=== PATIENT | male | born 1975 | race Two or more races ===

== ENCOUNTER 2020-06-24 01:52 | Inpatient (IN) | payer MEDICARE, OTHER ==
[~2020-06-24] VITALS: Ht 167.6 cm; Wt 86.2 kg
[2020-06-24] VITALS (10 sets, daily range): BP systolic 92–117; BP diastolic 37–61
[2020-06-24] MEDS ORDERED: PROPOFOL 100 ML IV ONE (02:04)
[2020-06-24] MEDS: PROPOFOL 100 ML IV SCH ×6 (02:10→21:51)
[2020-06-24] MEDS ORDERED: NOREPINEPHRINE 8 MG/250ML KIT 250 ML IV ONE (02:15)
[2020-06-24] MEDS: NOREPINEPHRINE 8 MG/250ML KIT 250 ML IV SCH ×2 (02:17→20:45)
[2020-06-24] MEDS: MIDAZOLAM DRIP 50 mg/50mL 50 ML IV SCH ×3 (02:30→18:20)
[2020-06-24 02:33] LABS: Urine Bacteria FEW /hpf (None Seen); Urine Blood 1+ /uL (Negative); Urine Hyaline Cast FEW /lpf (0 - 2); Urine Specific Gravity 1.006 (1.001-1.035); Urine Sperm PRESENT /hpf (None Seen); Urine WBC 6 /hpf (0 - 3)
[2020-06-24 02:35] LABS: Basophils # (auto) 0.1 10 ^3/uL (0-0.2); Basophils % (auto) 0.6 % (0.0-2.0); Eosinophils # (auto) 0.3 10 ^3/uL (0-0.8); Eosinophils % (auto) 2.3 % (0.0-7.0); Hematocrit 26.1 % (41.0-53.0); Hemoglobin 8.4 g/dL (13.5-17.5); Lymphocytes # (auto) 1.8 10 ^3/uL (0.4-5.4); Lymphocytes % (auto) 13.2 % (10.0-50.0); Mean Corpuscular Volume 97.4 fL (80.0-100.0); Monocytes # (auto) 0.8 10 ^3/uL (0-1.3); Monocytes % (auto) 5.9 % (0.0-12.0); Neutrophils # (auto) 10.8 10 ^3/uL (1.6-8.6); Nucleated Red Blood Cells % 0.3 %; Red Blood Cells 2.68 10^6/uL (4.5-5.90); White Blood Cell 13.8 10^3/uL (4.4-10.8)
[2020-06-24] MEDS ORDERED: LIDOCAINE 2% (LOCAL ANESTH.) PF 5ml SDV ONE (02:35)
[2020-06-24 02:36] LABS: Mean Corpuscular Hemoglobin 31.2 pg (28.0-32.0); Mean Corpuscular Hgb Conc. 32.1 g/dL (32.0-36.0); Platelet Count (auto) 180 10^3/uL (140-450)
[2020-06-24] MEDS ORDERED: LIDOCAINE 1% HCL (LOCAL ANESTH.) INJ 20ML MDV ONE (02:36)
[2020-06-24] MEDS ORDERED: MIDAZOLAM DRIP 50 mg/50mL 50 ML IV ONE (02:38)
[2020-06-24 02:43] LABS: Alcohol, Urine < 3.0 mg/dL (0-10); Amphetamine Screen, Urine NEGATIVE (NEGATIVE); Barbiturate Scree,Urine NEGATIVE (NEGATIVE); Benzodiazephine Screen, Urine NEGATIVE (NEGATIVE); Cannabinoid Screen, Urine NEGATIVE (NEGATIVE); Cocaine Screen, Urine NEGATIVE (NEGATIVE); Opiate Scree,Urine NEGATIVE (NEGATIVE); Phencyclidine Screen, Urine NEGATIVE (NEGATIVE)
[2020-06-24 02:58] LABS: Albumin 2.9 g/dL (3.4-5.0); Calcium 7.3 mg/dL (8.5-10.1); INR 1.22 (0.9-1.15); Magnesium 1.9 mg/dL (1.6-2.6); Potassium 4.5 mmol/L (3.5-5.1)
[2020-06-24 03:09] LABS: BUN/Creatinine Ratio 4.4; Bilirubin, Total 0.6 mg/dL (0.2-1.0); Phosphorus 5.3 mg/dL (2.5-4.90); Total Protein 6.4 g/dL (6.4-8.2)
[2020-06-24 04:01] LABS: Lactic Acid w/Reflex 9.5 mmol/L (0.4-2.0)
[2020-06-24] MEDS ORDERED: VANCOMYCIN 1GM/250ML 250 ML IV ONE (04:45)
[2020-06-24] MEDS ORDERED: PIPERACILLIN-TAZOB 3.375GM 100 ML IV ONE (04:45)
[2020-06-24] MEDS ORDERED: PIPERACILLIN-TAZOB 2.25GM 0.75 GM in D5W 5% 50 ML IV SCH (05:00)
[2020-06-24] MEDS ORDERED: ONDANSETRON HCL 4 MG/2 ML VIAL IV PRN (05:00)
[2020-06-24] MEDS ORDERED: MORPHINE SULF INJ 2 MG/ML SYRINGE 1ML IV PRN (05:00)
[2020-06-24] MEDS ORDERED: NITROGLYCERIN 0.4 MG SL TAB SL PRN (05:00)
[2020-06-24] MEDS ORDERED: ALBUMIN 5% 250 ML IV ONE (05:00)
[2020-06-24] MEDS: InsuLIN REG 1unit/0.01ml Soln (100units/ml) SC SCH ×4 (05:55→23:23)
[2020-06-24] MEDS: ACCU-CHEK COMFORT CURVE STRIP VI SCH ×4 (05:55→23:23)
[2020-06-24 06:40] LABS: Basophils # (auto) 0 10 ^3/uL (0-0.2); Basophils % (auto) 0.3 % (0.0-2.0); Eosinophils # (auto) 0.1 10 ^3/uL (0-0.8); Eosinophils % (auto) 1.3 % (0.0-7.0); Hematocrit 19.7 % (41.0-53.0); Lymphocytes # (auto) 0.4 10 ^3/uL (0.4-5.4); Lymphocytes % (auto) 3.6 % (10.0-50.0); Mean Corpuscular Hemoglobin 32.5 pg (28.0-32.0); Mean Corpuscular Volume 95.4 fL (80.0-100.0); Monocytes # (auto) 0.8 10 ^3/uL (0-1.3); Monocytes % (auto) 7.6 % (0.0-12.0); Neutrophils # (auto) 8.9 10 ^3/uL (1.6-8.6); Neutrophils % (auto) 87.2 % (37.0-80.0); Platelet Count (auto) 135 10^3/uL (140-450); Red Blood Cells 2.06 10^6/uL (4.5-5.90); Red Cell Distribution Width 15.9 % (11.8-14.3); White Blood Cell 10.2 10^3/uL (4.4-10.8)
[2020-06-24 06:45] LABS: Hemoglobin 6.7 g/dL (13.5-17.5)
[2020-06-24 06:48] LABS: INR 1.23 (0.9-1.15); Partial Thromboplastin Time 41.4 sec (23.0-31.2)
[2020-06-24 06:51] LABS: Potassium 3.6 mmol/L (3.5-5.1)
[2020-06-24 06:58] LABS: Albumin 2.8 g/dL (3.4-5.0); BUN/Creatinine Ratio 4.4; Bilirubin, Direct 0.3 mg/dL (0-0.2); Bilirubin, Total 0.8 mg/dL (0.2-1.0); Calcium 7.7 mg/dL (8.5-10.1); Magnesium 1.9 mg/dL (1.6-2.6); Phosphorus 4.9 mg/dL (2.5-4.90)
[2020-06-24] MEDS ORDERED: SODIUM BICARBONATE 8.4% INJ 50ML SYRINGE IV ONE (09:50)
[2020-06-24] MEDS: PANTOPRAZOLE 40 MG/10 ML VIAL INJ IV SCH (11:25)
[2020-06-24] MEDS: PIPERACILLIN-TAZOB 2.25GM 50 ML IV SCH ×2 (11:25→21:53)
[2020-06-24 11:26] LABS: Hematocrit 19.7 % (41.0-53.0)
[2020-06-24] MEDS: ASPirin 81 mg TAB PO SCH (11:26)
[2020-06-24 11:51] LABS: Hemoglobin 6.6 g/dL (13.5-17.5)
[2020-06-24] MEDS ORDERED: ASPI-266 PO (17:07)
[2020-06-24] MEDS ORDERED: PRE5T PO (17:10)
[2020-06-24] MEDS ORDERED: FURO80TA3 PO (17:10)
[2020-06-24] MEDS ORDERED: GLIP10TA9 PO (17:10)
[2020-06-24] MEDS ORDERED: NIFE90TA49 PO (17:10)
[2020-06-24] MEDS ORDERED: LOSA-39 PO (17:10)
[2020-06-24] MEDS ORDERED: OMEP-260 PO (17:10)
[2020-06-24] MEDS ORDERED: LABE300T3 PO (17:10)
[2020-06-24] MEDS ORDERED: B-COTAB94 PO (17:11)
[2020-06-24] MEDS ORDERED: [UNRECOGNIZED DRUG - CODE] IV (17:24)
[2020-06-24] MEDS ORDERED: EPOE10003 SC (17:24)
[2020-06-24] MEDS ORDERED: SEVE800T8 PO (17:24)
[2020-06-24] MEDS ORDERED: HEP1I IV (17:34)
[2020-06-24] MEDS ORDERED: DOPamine 1600MCG/ML D5W 250 ML IV ONE (19:05)
[2020-06-24] MEDS: DOPamine 1600MCG/ML D5W 250 ML IV SCH ×3 (19:21→21:59)
[2020-06-24] MEDS: DOXYCYCLINE 100MG/250ML 250 ML IV SCH (20:49)
[2020-06-24] MEDS: ATORVASTATIN 20 MG TAB PO SCH (22:25)
[2020-06-25] VITALS (18 sets, daily range): BP systolic 105–146; BP diastolic 32–75
[2020-06-25] MEDS: PROPOFOL 100 ML IV SCH ×2 (00:01→01:11)
[2020-06-25] MEDS ORDERED: NOREPINEPHRINE BITARTRATE 1 ML IV ONE (01:05)
[2020-06-25] MEDS: NOREPINEPHRINE 8 MG/250ML KIT 250 ML IV SCH (01:11)
[2020-06-25] MEDS: InsuLIN REG 1unit/0.01ml Soln (100units/ml) SC SCH ×3 (05:52→18:45)
[2020-06-25] MEDS: ACCU-CHEK COMFORT CURVE STRIP VI SCH ×3 (05:52→17:47)
[2020-06-25 06:58] LABS: Basophils # (auto) 0.1 10 ^3/uL (0-0.2); Basophils % (auto) 0.6 % (0.0-2.0); Eosinophils # (auto) 0.4 10 ^3/uL (0-0.8); Eosinophils % (auto) 4.6 % (0.0-7.0); Hematocrit 25.2 % (41.0-53.0); Hemoglobin 8.5 g/dL (13.5-17.5); Lymphocytes # (auto) 0.3 10 ^3/uL (0.4-5.4); Lymphocytes % (auto) 3.9 % (10.0-50.0); Mean Corpuscular Hemoglobin 31.3 pg (28.0-32.0); Mean Corpuscular Hgb Conc. 33.7 g/dL (32.0-36.0); Mean Corpuscular Volume 92.7 fL (80.0-100.0); Monocytes # (auto) 0.4 10 ^3/uL (0-1.3); Neutrophils # (auto) 6.9 10 ^3/uL (1.6-8.6); Neutrophils % (auto) 85.9 % (37.0-80.0); Nucleated Red Blood Cells % 0.1 %; Platelet Count (auto) 121 10^3/uL (140-450); Red Blood Cells 2.72 10^6/uL (4.5-5.90); Red Cell Distribution Width 15.5 % (11.8-14.3)
[2020-06-25] MEDS ORDERED: SODIUM CHL 0.9% 1000 ML BAG XX ONE (07:00)
[2020-06-25 07:16] LABS: % Iron Saturation 40.8 % (20-55); Potassium 3.9 mmol/L (3.5-5.1)
[2020-06-25 07:24] LABS: BUN/Creatinine Ratio 5.6; Bilirubin, Total 0.9 mg/dL (0.2-1.0); Calcium 8.3 mg/dL (8.5-10.1); Total Protein 6.6 g/dL (6.4-8.2)
[2020-06-25] MEDS: PANTOPRAZOLE 40 MG/10 ML VIAL INJ IV SCH (11:15)
[2020-06-25] MEDS: DOXYCYCLINE 100MG/250ML 250 ML IV SCH (11:19)
[2020-06-25] MEDS: ASPirin 81 mg TAB PO SCH (11:19)
[2020-06-25] MEDS: PIPERACILLIN-TAZOB 2.25GM 50 ML IV SCH (11:24)
[2020-06-25] MEDS ORDERED: EPOETIN ALFA 10,000 UNIT/1 ML VIAL SC ONE (21:00)
[2020-06-26] VITALS (95 sets, daily range): BP systolic 107–136; BP diastolic 58–82
[2020-06-26] MEDS: DOXYCYCLINE 100MG/250ML 250 ML IV SCH (01:08)
[2020-06-26] MEDS: ACCU-CHEK COMFORT CURVE STRIP VI SCH ×4 (01:10→18:00)
[2020-06-26] MEDS: MIDAZOLAM DRIP 50 mg/50mL 50 ML IV SCH (01:24)
[2020-06-26] MEDS: ATORVASTATIN 20 MG TAB PO SCH (01:25)
[2020-06-26] MEDS: PIPERACILLIN-TAZOB 2.25GM 50 ML IV SCH ×2 (01:26→12:22)
[2020-06-26] MEDS: NOREPINEPHRINE 8 MG/250ML KIT 250 ML IV SCH (03:15)
[2020-06-26] MEDS: DOPamine 1600MCG/ML D5W 250 ML IV SCH ×2 (03:57→14:51)
[2020-06-26] MEDS: InsuLIN REG 1unit/0.01ml Soln (100units/ml) SC SCH ×4 (05:10→18:00)
[2020-06-26 05:25] LABS: Basophils # (auto) 0 10 ^3/uL (0-0.2); Basophils % (auto) 0.6 % (0.0-2.0); Eosinophils # (auto) 0.4 10 ^3/uL (0-0.8); Hematocrit 23.8 % (41.0-53.0); Hemoglobin 8.2 g/dL (13.5-17.5); Lymphocytes # (auto) 0.4 10 ^3/uL (0.4-5.4); Lymphocytes % (auto) 5.7 % (10.0-50.0); Mean Corpuscular Hemoglobin 31.9 pg (28.0-32.0); Mean Corpuscular Hgb Conc. 34.5 g/dL (32.0-36.0); Mean Corpuscular Volume 92.5 fL (80.0-100.0); Monocytes # (auto) 0.5 10 ^3/uL (0-1.3); Monocytes % (auto) 6.6 % (0.0-12.0); Neutrophils % (auto) 81.1 % (37.0-80.0); Platelet Count (auto) 115 10^3/uL (140-450); Red Blood Cells 2.57 10^6/uL (4.5-5.90); Red Cell Distribution Width 15.6 % (11.8-14.3); White Blood Cell 7.4 10^3/uL (4.4-10.8)
[2020-06-26 05:35] LABS: Potassium 3.9 mmol/L (3.5-5.1)
[2020-06-26 06:33] LABS: Albumin 2.6 g/dL (3.4-5.0); BUN/Creatinine Ratio 4.9; Bilirubin, Total 0.8 mg/dL (0.2-1.0); Calcium 8.3 mg/dL (8.5-10.1)
[2020-06-26] MEDS ORDERED: SODIUM CHL 0.9% 1000 ML BAG XX ONE (11:00)
[2020-06-26] MEDS ORDERED: VANCOMYCIN PER PHARMACY 0 MG IV STA (11:19)
[2020-06-26] MEDS ORDERED: methylPREDNISolone SOD SUCC 125 MG/2 ML VL IV STA (11:35)
[2020-06-26] MEDS ORDERED: VANCOMYCIN PER PHARMACY 0 MG IV SCH (12:15)
[2020-06-26] MEDS: PANTOPRAZOLE 40 MG/10 ML VIAL INJ IV SCH (12:22)
[2020-06-26] MEDS: ASPirin 81 mg TAB PO SCH (12:22)
[2020-06-26] MEDS ORDERED: VANCOMYCIN 1GM/250ML 250 ML IV ONE (13:00)
[2020-06-26] MEDS ORDERED: EPOETIN ALFA 10,000 UNIT/1 ML VIAL SC ONE (21:00)
[2020-06-27] VITALS (96 sets, daily range): BP systolic 115–153; BP diastolic 69–98
[2020-06-27 01:16] LABS: BUN/Creatinine Ratio 5.2; Calcium 8.7 mg/dL (8.5-10.1); Potassium 4.6 mmol/L (3.5-5.1)
[2020-06-27] MEDS: PROPOFOL 100 ML IV SCH ×3 (01:23→15:15)
[2020-06-27] MEDS: PIPERACILLIN-TAZOB 2.25GM 50 ML IV SCH ×3 (01:24→21:43)
[2020-06-27] MEDS: ATORVASTATIN 20 MG TAB PO SCH ×2 (01:24→21:43)
[2020-06-27] MEDS: InsuLIN REG 1unit/0.01ml Soln (100units/ml) SC SCH ×5 (01:25→23:21)
[2020-06-27] MEDS: MIDAZOLAM DRIP 50 mg/50mL 50 ML IV SCH (01:26)
[2020-06-27] MEDS: ACCU-CHEK COMFORT CURVE STRIP VI SCH ×5 (01:26→23:19)
[2020-06-27] MEDS: DOPamine 1600MCG/ML D5W 250 ML IV SCH ×3 (01:45→23:22)
[2020-06-27] MEDS: NOREPINEPHRINE 8 MG/250ML KIT 250 ML IV SCH (03:15)
[2020-06-27 04:41] LABS: Basophils # (auto) 0 10 ^3/uL (0-0.2); Basophils % (auto) 0.1 % (0.0-2.0); Eosinophils # (auto) 0 10 ^3/uL (0-0.8); Eosinophils % (auto) 0.1 % (0.0-7.0); Hematocrit 25.2 % (41.0-53.0); Hemoglobin 8.5 g/dL (13.5-17.5); Lymphocytes # (auto) 0.3 10 ^3/uL (0.4-5.4); Lymphocytes % (auto) 3.3 % (10.0-50.0); Mean Corpuscular Hemoglobin 31.7 pg (28.0-32.0); Mean Corpuscular Hgb Conc. 33.7 g/dL (32.0-36.0); Mean Corpuscular Volume 94.1 fL (80.0-100.0); Monocytes # (auto) 0.2 10 ^3/uL (0-1.3); Monocytes % (auto) 2.3 % (0.0-12.0); Neutrophils # (auto) 7.4 10 ^3/uL (1.6-8.6); Neutrophils % (auto) 94.2 % (37.0-80.0); Platelet Count (auto) 115 10^3/uL (140-450); Red Blood Cells 2.68 10^6/uL (4.5-5.90); Red Cell Distribution Width 15.6 % (11.8-14.3); White Blood Cell 7.9 10^3/uL (4.4-10.8)
[2020-06-27 04:52] LABS: Albumin 2.6 g/dL (3.4-5.0); Calcium 8.8 mg/dL (8.5-10.1); Potassium 4.6 mmol/L (3.5-5.1)
[2020-06-27 04:54] LABS: BUN/Creatinine Ratio 5.6
[2020-06-27 04:56] LABS: Bilirubin, Total 0.8 mg/dL (0.2-1.0); Total Protein 6.1 g/dL (6.4-8.2)
[2020-06-27] MEDS: PANTOPRAZOLE 40 MG/10 ML VIAL INJ IV SCH (10:03)
[2020-06-27] MEDS: ASPirin 81 mg TAB PO SCH (10:03)
[2020-06-27] MEDS: AZITHROMYCIN 500MG/ 250ML 250 ML IV SCH (10:04)
[2020-06-27] MEDS ORDERED: VANCOMYCIN 1GM/250ML 250 ML IV ONE (14:00)
[2020-06-28] VITALS (95 sets, daily range): BP systolic 129–177; BP diastolic 68–104
[2020-06-28] MEDS: MIDAZOLAM DRIP 50 mg/50mL 50 ML IV SCH (02:45)
[2020-06-28] MEDS: NOREPINEPHRINE 8 MG/250ML KIT 250 ML IV SCH (03:15)
[2020-06-28 04:57] LABS: Basophils # (auto) 0 10 ^3/uL (0-0.2); Basophils % (auto) 0.1 % (0.0-2.0); Eosinophils # (auto) 0 10 ^3/uL (0-0.8); Lymphocytes # (auto) 0.3 10 ^3/uL (0.4-5.4); Mean Corpuscular Volume 94.1 fL (80.0-100.0); Monocytes # (auto) 0.5 10 ^3/uL (0-1.3); Neutrophils # (auto) 7.6 10 ^3/uL (1.6-8.6); Red Cell Distribution Width 15.9 % (11.8-14.3); White Blood Cell 8.4 10^3/uL (4.4-10.8)
[2020-06-28] MEDS: PROPOFOL 100 ML IV SCH ×2 (04:58→10:05)
[2020-06-28 04:59] LABS: Hematocrit 23.5 % (41.0-53.0); Hemoglobin 7.9 g/dL (13.5-17.5); Lymphocytes % (auto) 3.5 % (10.0-50.0); Mean Corpuscular Hemoglobin 31.8 pg (28.0-32.0); Mean Corpuscular Hgb Conc. 33.8 g/dL (32.0-36.0); Monocytes % (auto) 6.2 % (0.0-12.0); Neutrophils % (auto) 90.2 % (37.0-80.0); Platelet Count (auto) 124 10^3/uL (140-450)
[2020-06-28 05:11] LABS: Potassium 4.4 mmol/L (3.5-5.1)
[2020-06-28 05:16] LABS: Albumin 2.7 g/dL (3.4-5.0); BUN/Creatinine Ratio 7.4; Calcium 8.6 mg/dL (8.5-10.1); Total Protein 6.2 g/dL (6.4-8.2)
[2020-06-28 05:19] LABS: Bilirubin, Total 0.9 mg/dL (0.2-1.0)
[2020-06-28] MEDS: InsuLIN REG 1unit/0.01ml Soln (100units/ml) SC SCH ×3 (06:00→17:36)
[2020-06-28] MEDS: ACCU-CHEK COMFORT CURVE STRIP VI SCH ×3 (06:01→17:36)
[2020-06-28] MEDS: DOPamine 1600MCG/ML D5W 250 ML IV SCH ×2 (08:02→17:36)
[2020-06-28] MEDS: PIPERACILLIN-TAZOB 2.25GM 50 ML IV SCH ×2 (10:04→21:32)
[2020-06-28] MEDS: AZITHROMYCIN 500MG/ 250ML 250 ML IV SCH (10:04)
[2020-06-28] MEDS: PANTOPRAZOLE 40 MG/10 ML VIAL INJ IV SCH (10:04)
[2020-06-28] MEDS: ASPirin 81 mg TAB PO SCH (10:04)
[2020-06-28] MEDS: ENOXAPARIN SOD 30 MG/0.3 ML SYRINGE SC SCH (10:05)
[2020-06-28] MEDS ORDERED: hydrALAZINE HCL 20 MG/ML VL IV PRN (19:15)
[2020-06-28] MEDS: ATORVASTATIN 20 MG TAB PO SCH (21:32)
[2020-06-29] VITALS (97 sets, daily range): BP systolic 96–176; BP diastolic 57–106
[2020-06-29] MEDS: InsuLIN REG 1unit/0.01ml Soln (100units/ml) SC SCH ×5 (00:27→23:02)
[2020-06-29] MEDS: ACCU-CHEK COMFORT CURVE STRIP VI SCH ×5 (00:28→23:03)
[2020-06-29] MEDS: MIDAZOLAM DRIP 50 mg/50mL 50 ML IV SCH (02:45)
[2020-06-29] MEDS: NOREPINEPHRINE 8 MG/250ML KIT 250 ML IV SCH (03:15)
[2020-06-29 04:29] LABS: Basophils # (auto) 0 10 ^3/uL (0-0.2); Basophils % (auto) 0.3 % (0.0-2.0); Eosinophils # (auto) 0.2 10 ^3/uL (0-0.8); Eosinophils % (auto) 3.6 % (0.0-7.0); Hematocrit 23.6 % (41.0-53.0); Hemoglobin 7.9 g/dL (13.5-17.5); Lymphocytes # (auto) 0.6 10 ^3/uL (0.4-5.4); Lymphocytes % (auto) 9.6 % (10.0-50.0); Mean Corpuscular Hemoglobin 31.6 pg (28.0-32.0); Mean Corpuscular Hgb Conc. 33.7 g/dL (32.0-36.0); Mean Corpuscular Volume 93.7 fL (80.0-100.0); Monocytes # (auto) 0.6 10 ^3/uL (0-1.3); Monocytes % (auto) 9.4 % (0.0-12.0); Neutrophils # (auto) 4.6 10 ^3/uL (1.6-8.6); Neutrophils % (auto) 77.1 % (37.0-80.0); Platelet Count (auto) 117 10^3/uL (140-450); Red Blood Cells 2.51 10^6/uL (4.5-5.90); Red Cell Distribution Width 15.7 % (11.8-14.3); White Blood Cell 5.9 10^3/uL (4.4-10.8)
[2020-06-29 04:51] LABS: % Iron Saturation 82.8 % (20-55)
[2020-06-29 05:09] LABS: Albumin 2.6 g/dL (3.4-5.0); Calcium 8.8 mg/dL (8.5-10.1); Potassium 4.1 mmol/L (3.5-5.1)
[2020-06-29 05:12] LABS: BUN/Creatinine Ratio 9.2; Bilirubin, Total 0.9 mg/dL (0.2-1.0); Total Protein 6.2 g/dL (6.4-8.2)
[2020-06-29] MEDS ORDERED: SODIUM CHL 0.9% 1000 ML BAG XX ONE (07:00)
[2020-06-29] MEDS: DOPamine 1600MCG/ML D5W 250 ML IV SCH ×2 (08:15→19:09)
[2020-06-29] MEDS: PROPOFOL 100 ML IV SCH (09:15)
[2020-06-29] MEDS: AZITHROMYCIN 500MG/ 250ML 250 ML IV SCH (09:16)
[2020-06-29] MEDS: PANTOPRAZOLE 40 MG/10 ML VIAL INJ IV SCH (09:16)
[2020-06-29] MEDS: ENOXAPARIN SOD 30 MG/0.3 ML SYRINGE SC SCH (10:00)
[2020-06-29] MEDS: ASPirin 81 mg TAB PO SCH (11:42)
[2020-06-29] MEDS ORDERED: PIPERACILLIN-TAZOB 2.25GM 50 ML IV SCH (14:00)
[2020-06-29] MEDS: hydrALAZINE HCL 20 MG/ML VL IV PRN (15:04)
[2020-06-29] MEDS ORDERED: VANCOMYCIN 1GM/250ML 250 ML IV ONE (16:00)
[2020-06-29] MEDS: DEXTROSE (50%) 50ML SYRG IV PRN (17:47)
[2020-06-29] MEDS: ACETAMINOPHEN 325 MG TAB PO PRN (20:25)
[2020-06-29] MEDS ORDERED: EPOETIN ALFA 10,000 UNIT/1 ML VIAL SC ONE (21:00)
[2020-06-29] MEDS: ATORVASTATIN 20 MG TAB PO SCH (21:01)
[2020-06-30] VITALS (89 sets, daily range): BP systolic 96–195; BP diastolic 28–136
[2020-06-30] MEDS: MIDAZOLAM DRIP 50 mg/50mL 50 ML IV SCH (02:44)
[2020-06-30] MEDS: NOREPINEPHRINE 8 MG/250ML KIT 250 ML IV SCH (02:45)
[2020-06-30] MEDS: hydrALAZINE HCL 20 MG/ML VL IV PRN (02:46)
[2020-06-30] MEDS: ACETAMINOPHEN 325 MG TAB PO PRN ×3 (02:47→17:58)
[2020-06-30 04:43] LABS: Basophils # (auto) 0 10 ^3/uL (0-0.2); Basophils % (auto) 0.3 % (0.0-2.0); Eosinophils # (auto) 0.6 10 ^3/uL (0-0.8); Eosinophils % (auto) 5.4 % (0.0-7.0); Hematocrit 27.4 % (41.0-53.0); Lymphocytes # (auto) 0.7 10 ^3/uL (0.4-5.4); Lymphocytes % (auto) 6.4 % (10.0-50.0); Mean Corpuscular Hemoglobin 31.1 pg (28.0-32.0); Mean Corpuscular Volume 94.4 fL (80.0-100.0); Monocytes # (auto) 1.2 10 ^3/uL (0-1.3); Monocytes % (auto) 9.9 % (0.0-12.0); Neutrophils # (auto) 9.1 10 ^3/uL (1.6-8.6); Platelet Count (auto) 142 10^3/uL (140-450); Red Cell Distribution Width 15.4 % (11.8-14.3); White Blood Cell 11.7 10^3/uL (4.4-10.8)
[2020-06-30 05:08] LABS: Albumin 2.6 g/dL (3.4-5.0); Calcium 9.2 mg/dL (8.5-10.1); Potassium 3.9 mmol/L (3.5-5.1)
[2020-06-30 05:13] LABS: BUN/Creatinine Ratio 10.5; Bilirubin, Total 1.4 mg/dL (0.2-1.0); Total Protein 6.2 g/dL (6.4-8.2)
[2020-06-30] MEDS: InsuLIN REG 1unit/0.01ml Soln (100units/ml) SC SCH ×3 (06:00→17:58)
[2020-06-30] MEDS: DOPamine 1600MCG/ML D5W 250 ML IV SCH ×2 (06:03→16:57)
[2020-06-30] MEDS: PROPOFOL 100 ML IV SCH (06:15)
[2020-06-30] MEDS: ACCU-CHEK COMFORT CURVE STRIP VI SCH ×3 (06:17→17:59)
[2020-06-30] MEDS ORDERED: SODIUM CHL 0.9% 1000 ML BAG XX ONE (07:00)
[2020-06-30] MEDS: PANTOPRAZOLE 40 MG/10 ML VIAL INJ IV SCH (09:17)
[2020-06-30] MEDS: AZITHROMYCIN 500MG/ 250ML 250 ML IV SCH (09:19)
[2020-06-30] MEDS: CEFTRIAXONE SODIUM 2 GM in D5W 5% 50 ML IV SCH (09:19)
[2020-06-30] MEDS: ASPirin 81 mg TAB PO SCH (09:20)
[2020-06-30] MEDS: ENOXAPARIN SOD 100 MG/1 ML SYRINGE SC SCH (09:20)
[2020-06-30] MEDS: ENOXAPARIN SOD 30 MG/0.3 ML SYRINGE SC SCH (10:00)
[2020-06-30] MEDS ORDERED: fentaNYL Drip 2500mCg/250mlNS 250 ML IV ONE (11:45)
[2020-06-30] MEDS: fentaNYL Drip 2500mCg/250mlNS 250 ML IV SCH (11:52)
[2020-06-30] MEDS: DEXTROSE (50%) 50ML SYRG IV PRN (13:51)
[2020-06-30] MEDS ORDERED: EPOETIN ALFA 10,000 UNIT/1 ML VIAL SC ONE (21:00)
[2020-06-30] MEDS: ATORVASTATIN 20 MG TAB PO SCH (22:22)
[2020-07-01] VITALS (90 sets, daily range): BP systolic 79–172; BP diastolic 31–97
[2020-07-01] MEDS: hydrALAZINE HCL 20 MG/ML VL IV PRN (00:40)
[2020-07-01] MEDS: PROPOFOL 100 ML IV SCH ×3 (01:26→21:30)
[2020-07-01] MEDS: MIDAZOLAM DRIP 50 mg/50mL 50 ML IV SCH (02:45)
[2020-07-01] MEDS: DOPamine 1600MCG/ML D5W 250 ML IV SCH ×2 (03:51→14:45)
[2020-07-01 04:12] LABS: Basophils # (auto) 0.1 10 ^3/uL (0-0.2); Basophils % (auto) 0.7 % (0.0-2.0); Eosinophils # (auto) 0.8 10 ^3/uL (0-0.8); Eosinophils % (auto) 5.2 % (0.0-7.0); Hematocrit 26.7 % (41.0-53.0); Hemoglobin 8.8 g/dL (13.5-17.5); Lymphocytes # (auto) 0.8 10 ^3/uL (0.4-5.4); Lymphocytes % (auto) 5.6 % (10.0-50.0); Mean Corpuscular Hemoglobin 31.5 pg (28.0-32.0); Mean Corpuscular Hgb Conc. 32.9 g/dL (32.0-36.0); Mean Corpuscular Volume 95.8 fL (80.0-100.0); Monocytes # (auto) 1.3 10 ^3/uL (0-1.3); Monocytes % (auto) 8.7 % (0.0-12.0); Neutrophils # (auto) 11.9 10 ^3/uL (1.6-8.6); Neutrophils % (auto) 79.8 % (37.0-80.0); Platelet Count (auto) 125 10^3/uL (140-450); Red Blood Cells 2.78 10^6/uL (4.5-5.90); Red Cell Distribution Width 15.9 % (11.8-14.3); White Blood Cell 14.9 10^3/uL (4.4-10.8)
[2020-07-01 04:32] LABS: Albumin 2.3 g/dL (3.4-5.0); Calcium 9.2 mg/dL (8.5-10.1)
[2020-07-01 04:36] LABS: BUN/Creatinine Ratio 9.2; Bilirubin, Total 0.9 mg/dL (0.2-1.0); Total Protein 6.2 g/dL (6.4-8.2)
[2020-07-01] MEDS: InsuLIN REG 1unit/0.01ml Soln (100units/ml) SC SCH ×4 (06:00→18:00)
[2020-07-01] MEDS: NOREPINEPHRINE 8 MG/250ML KIT 250 ML IV SCH (09:21)
[2020-07-01] MEDS: CEFTRIAXONE SODIUM 2 GM in D5W 5% 50 ML IV SCH (09:32)
[2020-07-01] MEDS: AZITHROMYCIN 500MG/ 250ML 250 ML IV SCH (09:32)
[2020-07-01] MEDS: PANTOPRAZOLE 40 MG/10 ML VIAL INJ IV SCH (09:33)
[2020-07-01] MEDS: ENOXAPARIN SOD 100 MG/1 ML SYRINGE SC SCH (09:33)
[2020-07-01] MEDS: ASPirin 81 mg TAB PO SCH (09:33)
[2020-07-01] MEDS: fentaNYL Drip 2500mCg/250mlNS 250 ML IV SCH (09:47)
[2020-07-01] MEDS: ACCU-CHEK COMFORT CURVE STRIP VI SCH ×4 (11:29→18:08)
[2020-07-01] MEDS: ACETAMINOPHEN 325 MG TAB PO PRN (11:41)
[2020-07-01] MEDS ORDERED: VANCOMYCIN PER PHARMACY 0 MG IV SCH (12:00)
[2020-07-01] MEDS ORDERED: predniSONE 5 MG TAB PO ONE (12:30)
[2020-07-01] MEDS ORDERED: VANCOMYCIN 1GM/250ML 250 ML IV ONE (16:00)
[2020-07-01] MEDS: AMIODARONE HCL 200 MG TAB PO SCH (17:00)
[2020-07-02] VITALS (96 sets, daily range): BP systolic 93–135; BP diastolic 50–96
[2020-07-02] MEDS: DOPamine 1600MCG/ML D5W 250 ML IV SCH ×3 (01:39→23:27)
[2020-07-02] MEDS: MIDAZOLAM DRIP 50 mg/50mL 50 ML IV SCH (02:45)
[2020-07-02] MEDS: NOREPINEPHRINE 8 MG/250ML KIT 250 ML IV SCH (03:15)
[2020-07-02 04:53] LABS: Basophils # (auto) 0.1 10 ^3/uL (0-0.2); Basophils % (auto) 0.4 % (0.0-2.0); Eosinophils # (auto) 0.4 10 ^3/uL (0-0.8); Eosinophils % (auto) 2.5 % (0.0-7.0); Hematocrit 25.9 % (41.0-53.0); Hemoglobin 8.6 g/dL (13.5-17.5); Lymphocytes # (auto) 0.7 10 ^3/uL (0.4-5.4); Lymphocytes % (auto) 4.4 % (10.0-50.0); Mean Corpuscular Hemoglobin 32.2 pg (28.0-32.0); Mean Corpuscular Hgb Conc. 33.2 g/dL (32.0-36.0); Mean Corpuscular Volume 96.8 fL (80.0-100.0); Monocytes # (auto) 1.1 10 ^3/uL (0-1.3); Monocytes % (auto) 6.9 % (0.0-12.0); Neutrophils # (auto) 13.1 10 ^3/uL (1.6-8.6); Neutrophils % (auto) 85.8 % (37.0-80.0); Nucleated Red Blood Cells % 0.1 %; Platelet Count (auto) 156 10^3/uL (140-450); Red Blood Cells 2.68 10^6/uL (4.5-5.90); Red Cell Distribution Width 16.2 % (11.8-14.3); White Blood Cell 15.3 10^3/uL (4.4-10.8)
[2020-07-02 05:03] LABS: % Iron Saturation 63.2 % (20-55)
[2020-07-02 05:04] LABS: Potassium 5.5 mmol/L (3.5-5.1)
[2020-07-02 05:14] LABS: Albumin 2.2 g/dL (3.4-5.0); BUN/Creatinine Ratio 9.6; Bilirubin, Total 0.8 mg/dL (0.2-1.0); Calcium 9.6 mg/dL (8.5-10.1); Total Protein 6.4 g/dL (6.4-8.2)
[2020-07-02] MEDS: InsuLIN REG 1unit/0.01ml Soln (100units/ml) SC SCH ×5 (05:52→23:40)
[2020-07-02] MEDS: ACCU-CHEK COMFORT CURVE STRIP VI SCH ×5 (05:52→23:40)
[2020-07-02] MEDS ORDERED: SODIUM CHL 0.9% 1000 ML BAG XX ONE (07:00)
[2020-07-02] MEDS ORDERED: AMIODARONE 450mg/250ml AE 250 ML IV SCH (08:45)
[2020-07-02] MEDS ORDERED: AMIODARONE HCL 150 MG in D5W 5% 100 ML IV ONE (08:45)
[2020-07-02] MEDS: AMIODARONE HCL 200 MG TAB PO SCH ×2 (10:00→22:00)
[2020-07-02 10:05] LABS: INR 1.1 (0.9-1.15)
[2020-07-02] MEDS: ASPirin 81 mg TAB PO SCH (10:13)
[2020-07-02] MEDS: PANTOPRAZOLE 40 MG/10 ML VIAL INJ IV SCH (10:13)
[2020-07-02] MEDS: predniSONE 5 MG TAB PO SCH (10:13)
[2020-07-02] MEDS: ENOXAPARIN SOD 100 MG/1 ML SYRINGE SC SCH (10:14)
[2020-07-02] MEDS: fentaNYL Drip 2500mCg/250mlNS 250 ML IV SCH (12:00)
[2020-07-02] MEDS: AMIODARONE 450mg/250ml AE 250 ML IV SCH (14:45)
[2020-07-02] MEDS ORDERED: VANCOMYCIN 1GM/250ML 250 ML IV ONE (16:00)
[2020-07-02] MEDS ORDERED: EPOETIN ALFA 10,000 UNIT/1 ML VIAL SC ONE (21:00)
[2020-07-03] VITALS (105 sets, daily range): BP systolic 98–158; BP diastolic 53–107
[2020-07-03] MEDS: MIDAZOLAM DRIP 50 mg/50mL 50 ML IV SCH (02:45)
[2020-07-03] MEDS: NOREPINEPHRINE 8 MG/250ML KIT 250 ML IV SCH (03:15)
[2020-07-03 04:35] LABS: Hemoglobin 8.2 g/dL (13.5-17.5); Monocytes # (auto) 1.1 10 ^3/uL (0-1.3); Red Cell Distribution Width 16.5 % (11.8-14.3)
[2020-07-03 04:39] LABS: Basophils # (auto) 0.1 10 ^3/uL (0-0.2); Basophils % (auto) 0.5 % (0.0-2.0); Eosinophils # (auto) 0.7 10 ^3/uL (0-0.8); Eosinophils % (auto) 5.6 % (0.0-7.0); Hematocrit 24.7 % (41.0-53.0); Lymphocytes # (auto) 0.6 10 ^3/uL (0.4-5.4); Lymphocytes % (auto) 4.6 % (10.0-50.0); Mean Corpuscular Hemoglobin 31.6 pg (28.0-32.0); Mean Corpuscular Hgb Conc. 33.1 g/dL (32.0-36.0); Mean Corpuscular Volume 95.5 fL (80.0-100.0); Monocytes % (auto) 9.3 % (0.0-12.0); Neutrophils # (auto) 9.8 10 ^3/uL (1.6-8.6); Platelet Count (auto) 154 10^3/uL (140-450); Red Blood Cells 2.59 10^6/uL (4.5-5.90); White Blood Cell 12.3 10^3/uL (4.4-10.8)
[2020-07-03] MEDS: ACCU-CHEK COMFORT CURVE STRIP VI SCH ×3 (05:49→17:37)
[2020-07-03] MEDS: InsuLIN REG 1unit/0.01ml Soln (100units/ml) SC SCH ×3 (05:49→17:40)
[2020-07-03] MEDS: PROPOFOL 100 ML IV SCH ×2 (07:50→22:40)
[2020-07-03] MEDS: AMIODARONE 450mg/250ml AE 250 ML IV SCH (08:00)
[2020-07-03] MEDS: fentaNYL Drip 2500mCg/250mlNS 250 ML IV SCH (08:00)
[2020-07-03] MEDS: PANTOPRAZOLE 40 MG/10 ML VIAL INJ IV SCH (09:36)
[2020-07-03] MEDS: AMIODARONE HCL 200 MG TAB PO SCH ×2 (09:37→21:36)
[2020-07-03] MEDS: ENOXAPARIN SOD 100 MG/1 ML SYRINGE SC SCH (09:38)
[2020-07-03] MEDS: ASPirin 81 mg TAB PO SCH (09:38)
[2020-07-03] MEDS: predniSONE 5 MG TAB PO SCH (09:38)
[2020-07-03] MEDS: DOPamine 1600MCG/ML D5W 250 ML IV SCH ×2 (10:21→21:15)
[2020-07-04] VITALS (109 sets, daily range): BP systolic 87–171; BP diastolic 57–97
[2020-07-04] MEDS: AMIODARONE 450mg/250ml AE 250 ML IV SCH ×2 (00:45→12:36)
[2020-07-04] MEDS: MIDAZOLAM DRIP 50 mg/50mL 50 ML IV SCH (02:45)
[2020-07-04] MEDS: NOREPINEPHRINE 8 MG/250ML KIT 250 ML IV SCH (03:15)
[2020-07-04 05:18] LABS: Eosinophils # (auto) 0.5 10 ^3/uL (0-0.8); Lymphocytes # (auto) 0.6 10 ^3/uL (0.4-5.4); Mean Corpuscular Hgb Conc. 33.4 g/dL (32.0-36.0); Monocytes # (auto) 0.9 10 ^3/uL (0-1.3); Nucleated Red Blood Cells % 0.1 %
[2020-07-04 05:22] LABS: Basophils # (auto) 0 10 ^3/uL (0-0.2); Basophils % (auto) 0.4 % (0.0-2.0); Eosinophils % (auto) 5.9 % (0.0-7.0); Hematocrit 22.1 % (41.0-53.0); Hemoglobin 7.4 g/dL (13.5-17.5); Mean Corpuscular Volume 95.8 fL (80.0-100.0); Monocytes % (auto) 10.1 % (0.0-12.0); Neutrophils # (auto) 6.6 10 ^3/uL (1.6-8.6); Neutrophils % (auto) 76.6 % (37.0-80.0); Platelet Count (auto) 140 10^3/uL (140-450); Red Cell Distribution Width 16.3 % (11.8-14.3); White Blood Cell 8.7 10^3/uL (4.4-10.8)
[2020-07-04] MEDS: InsuLIN REG 1unit/0.01ml Soln (100units/ml) SC SCH ×5 (06:00→23:50)
[2020-07-04] MEDS ORDERED: SODIUM CHL 0.9% 1000 ML BAG XX ONE (06:00)
[2020-07-04] MEDS: ACCU-CHEK COMFORT CURVE STRIP VI SCH ×5 (06:00→23:50)
[2020-07-04] MEDS ORDERED: SODIUM CHLORIDE 0.9% 2,000 ML IV ONE (07:00)
[2020-07-04] MEDS ORDERED: CATHFLO ACTIVASE (ALTEPLASE) 2 MG VIAL IV ONE (07:15)
[2020-07-04] MEDS: fentaNYL Drip 2500mCg/250mlNS 250 ML IV SCH (07:44)
[2020-07-04] MEDS: DOPamine 1600MCG/ML D5W 250 ML IV SCH ×2 (08:09→18:26)
[2020-07-04] MEDS: PROPOFOL 100 ML IV SCH ×2 (09:18→19:01)
[2020-07-04] MEDS: PANTOPRAZOLE 40 MG/10 ML VIAL INJ IV SCH (10:32)
[2020-07-04] MEDS: AMIODARONE HCL 200 MG TAB PO SCH ×2 (10:32→22:00)
[2020-07-04] MEDS: ENOXAPARIN SOD 100 MG/1 ML SYRINGE SC SCH (10:32)
[2020-07-04] MEDS: predniSONE 5 MG TAB PO SCH (10:33)
[2020-07-04] MEDS: ASPirin 81 mg TAB PO SCH (10:33)
[2020-07-04] MEDS ORDERED: EPOETIN ALFA 10,000 UNIT/1 ML VIAL SC ONE (21:00)
[2020-07-05] VITALS (89 sets, daily range): BP systolic 89–157; BP diastolic 44–119
[2020-07-05] MEDS: AMIODARONE 450mg/250ml AE 250 ML IV SCH ×2 (02:45→07:30)
[2020-07-05] MEDS: MIDAZOLAM DRIP 50 mg/50mL 50 ML IV SCH ×2 (02:45→23:37)
[2020-07-05] MEDS: NOREPINEPHRINE 8 MG/250ML KIT 250 ML IV SCH ×2 (03:15→23:37)
[2020-07-05] MEDS: fentaNYL Drip 2500mCg/250mlNS 250 ML IV SCH (04:03)
[2020-07-05 05:06] LABS: Hemoglobin 7.3 g/dL (13.5-17.5)
[2020-07-05 05:09] LABS: Hematocrit 22.1 % (41.0-53.0)
[2020-07-05 05:31] LABS: Potassium 4.2 mmol/L (3.5-5.1)
[2020-07-05] MEDS: DOPamine 1600MCG/ML D5W 250 ML IV SCH ×3 (05:34→23:38)
[2020-07-05 05:35] LABS: BUN/Creatinine Ratio 9.1; Magnesium 2.2 mg/dL (1.6-2.6)
[2020-07-05] MEDS: ACCU-CHEK COMFORT CURVE STRIP VI SCH ×4 (06:00→23:37)
[2020-07-05] MEDS: InsuLIN REG 1unit/0.01ml Soln (100units/ml) SC SCH ×4 (06:00→23:37)
[2020-07-05] MEDS: predniSONE 5 MG TAB PO SCH (09:33)
[2020-07-05] MEDS: ENOXAPARIN SOD 100 MG/1 ML SYRINGE SC SCH (09:33)
[2020-07-05] MEDS: AMIODARONE HCL 200 MG TAB PO SCH ×2 (09:33→21:14)
[2020-07-05] MEDS: PANTOPRAZOLE 40 MG/10 ML VIAL INJ IV SCH (09:33)
[2020-07-05] MEDS: ASPirin 81 mg TAB PO SCH (09:33)
[2020-07-05 09:45] LABS: INR 1.05 (0.9-1.15)
[2020-07-05] MEDS ORDERED: FUROSEMIDE 40 MG/4 ML VIAL IV ONE ×2 (13:00→14:45)
[2020-07-05] MEDS ORDERED: FUROSEMIDE 40 MG/4 ML VIAL ONE (13:05)
[2020-07-06] VITALS (42 sets, daily range): BP systolic 99–172; BP diastolic 40–111
[2020-07-06 02:48] LABS: Basophils # (auto) 0.1 10 ^3/uL (0-0.2); Eosinophils # (auto) 0.5 10 ^3/uL (0-0.8); Hematocrit 21.3 % (41.0-53.0); Hemoglobin 7.2 g/dL (13.5-17.5); Lymphocytes # (auto) 0.5 10 ^3/uL (0.4-5.4); Monocytes # (auto) 1.1 10 ^3/uL (0-1.3); Nucleated Red Blood Cells % 0.1 %; Red Cell Distribution Width 16.2 % (11.8-14.3)
[2020-07-06 02:49] LABS: Basophils % (auto) 1.1 % (0.0-2.0); Eosinophils % (auto) 5.1 % (0.0-7.0); Mean Corpuscular Hemoglobin 32.7 pg (28.0-32.0); Mean Corpuscular Hgb Conc. 33.9 g/dL (32.0-36.0); Mean Corpuscular Volume 96.3 fL (80.0-100.0); Monocytes % (auto) 10.8 % (0.0-12.0); Platelet Count (auto) 203 10^3/uL (140-450); Red Blood Cells 2.21 10^6/uL (4.5-5.90); White Blood Cell 10.3 10^3/uL (4.4-10.8)
[2020-07-06 03:05] LABS: BUN/Creatinine Ratio 8.7; Calcium 9.2 mg/dL (8.5-10.1)
[2020-07-06] MEDS ORDERED: LORazepam 2MG/ML-1ML VIAL ONE (03:32)
[2020-07-06] MEDS: AMIODARONE 450mg/250ml AE 250 ML IV SCH ×2 (04:00→12:45)
[2020-07-06] MEDS ORDERED: LORazepam 2MG/ML-1ML VIAL IV ONE (04:15)
[2020-07-06] MEDS: ACCU-CHEK COMFORT CURVE STRIP VI SCH ×3 (05:09→17:37)
[2020-07-06] MEDS: InsuLIN REG 1unit/0.01ml Soln (100units/ml) SC SCH ×3 (05:09→17:37)
[2020-07-06] MEDS: PROPOFOL 100 ML IV SCH (09:15)
[2020-07-06] MEDS: AMIODARONE HCL 200 MG TAB PO SCH ×2 (09:48→21:31)
[2020-07-06] MEDS: PANTOPRAZOLE 40 MG/10 ML VIAL INJ IV SCH (09:48)
[2020-07-06] MEDS: ENOXAPARIN SOD 100 MG/1 ML SYRINGE SC SCH (09:48)
[2020-07-06] MEDS: ASPirin 81 mg TAB PO SCH (09:48)
[2020-07-06] MEDS: fentaNYL Drip 2500mCg/250mlNS 250 ML IV SCH (09:48)
[2020-07-06] MEDS: predniSONE 5 MG TAB PO SCH (09:48)
[2020-07-06] MEDS: LORazepam 2MG/ML-1ML VIAL IV PRN ×2 (10:30→18:31)
[2020-07-06] MEDS ORDERED: HEPARIN 1,000 UNITS/ml 1ML VIAL ONE (11:42)
[2020-07-06] MEDS ORDERED: LORazepam 2MG/ML-1ML VIAL IM ONE ×2 (11:45→14:00)
[2020-07-06] MEDS ORDERED: FUROSEMIDE 100 MG/10ML VIAL IV ONE (11:45)
[2020-07-06] MEDS ORDERED: SODIUM CHL 0.9% 1000 ML BAG XX ONE (11:45)
[2020-07-06] MEDS: DOPamine 1600MCG/ML D5W 250 ML IV SCH (11:59)
[2020-07-06] MEDS: ACETAMINOPHEN 325 MG TAB PO PRN ×2 (13:14→21:32)
[2020-07-06] MEDS ORDERED: VANCOMYCIN 1GM/250ML 250 ML IV ONE (16:00)
[2020-07-06] MEDS ORDERED: EPOETIN ALFA 10,000 UNIT/1 ML VIAL SC ONE (21:00)
[2020-07-07] VITALS (39 sets, daily range): BP systolic 74–162; BP diastolic 46–105
[2020-07-07] MEDS: DOPamine 1600MCG/ML D5W 250 ML IV SCH ×3 (01:35→10:44)
[2020-07-07 05:03] LABS: Basophils # (auto) 0.1 10 ^3/uL (0-0.2); Basophils % (auto) 0.7 % (0.0-2.0); Eosinophils # (auto) 0.9 10 ^3/uL (0-0.8); Eosinophils % (auto) 7.3 % (0.0-7.0); Hematocrit 25.1 % (41.0-53.0); Hemoglobin 8.1 g/dL (13.5-17.5); Lymphocytes # (auto) 0.6 10 ^3/uL (0.4-5.4); Lymphocytes % (auto) 4.9 % (10.0-50.0); Mean Corpuscular Hemoglobin 31.6 pg (28.0-32.0); Mean Corpuscular Hgb Conc. 32.4 g/dL (32.0-36.0); Mean Corpuscular Volume 97.4 fL (80.0-100.0); Monocytes # (auto) 1.5 10 ^3/uL (0-1.3); Monocytes % (auto) 12.1 % (0.0-12.0); Neutrophils # (auto) 9.2 10 ^3/uL (1.6-8.6); Platelet Count (auto) 187 10^3/uL (140-450); Red Blood Cells 2.58 10^6/uL (4.5-5.90); Red Cell Distribution Width 16.3 % (11.8-14.3); White Blood Cell 12.2 10^3/uL (4.4-10.8)
[2020-07-07 05:22] LABS: Potassium 3.3 mmol/L (3.5-5.1)
[2020-07-07 05:28] LABS: BUN/Creatinine Ratio 7.9; Calcium 9.4 mg/dL (8.5-10.1)
[2020-07-07] MEDS: InsuLIN REG 1unit/0.01ml Soln (100units/ml) SC SCH ×4 (06:00→17:47)
[2020-07-07] MEDS: ACCU-CHEK COMFORT CURVE STRIP VI SCH ×4 (06:00→17:47)
[2020-07-07] MEDS: ACETAMINOPHEN 325 MG TAB PO PRN ×2 (06:16→13:15)
[2020-07-07] MEDS: MIDAZOLAM DRIP 50 mg/50mL 50 ML IV SCH (07:43)
[2020-07-07] MEDS: PROPOFOL 100 ML IV SCH (07:43)
[2020-07-07] MEDS: NOREPINEPHRINE 8 MG/250ML KIT 250 ML IV SCH (07:43)
[2020-07-07] MEDS ORDERED: POTASSIUM CHL 20MEQ/100ML 100 ML IV ONE ×2 (08:15→11:30)
[2020-07-07] MEDS: MORPHINE SULF INJ 2 MG/ML SYRINGE 1ML IV PRN ×2 (08:30→13:15)
[2020-07-07] MEDS: fentaNYL Drip 2500mCg/250mlNS 250 ML IV SCH (09:56)
[2020-07-07] MEDS: AMIODARONE HCL 200 MG TAB PO SCH ×2 (09:56→22:00)
[2020-07-07] MEDS: ASPirin 81 mg TAB PO SCH (09:56)
[2020-07-07] MEDS: ENOXAPARIN SOD 100 MG/1 ML SYRINGE SC SCH (09:56)
[2020-07-07] MEDS: PANTOPRAZOLE 40 MG/10 ML VIAL INJ IV SCH (09:56)
[2020-07-07] MEDS: predniSONE 5 MG TAB PO SCH (09:56)
[2020-07-07] MEDS ORDERED: MORPHINE SULF INJ 2 MG/ML SYRINGE 1ML IV ONE (13:30)
[2020-07-07] MEDS: AMIODARONE 450mg/250ml AE 250 ML IV SCH (18:00)
[2020-07-08] VITALS (39 sets, daily range): BP systolic 86–181; BP diastolic 38–95
[2020-07-08] MEDS: MIDAZOLAM DRIP 50 mg/50mL 50 ML IV SCH (02:45)
[2020-07-08] MEDS: PROPOFOL 100 ML IV SCH (03:15)
[2020-07-08] MEDS: NOREPINEPHRINE 8 MG/250ML KIT 250 ML IV SCH (03:15)
[2020-07-08 04:34] LABS: Basophils # (auto) 0.1 10 ^3/uL (0-0.2); Basophils % (auto) 0.6 % (0.0-2.0); Eosinophils # (auto) 0.6 10 ^3/uL (0-0.8); Lymphocytes # (auto) 0.6 10 ^3/uL (0.4-5.4); Platelet Count (auto) 213 10^3/uL (140-450); Red Cell Distribution Width 17.2 % (11.8-14.3); White Blood Cell 10.5 10^3/uL (4.4-10.8)
[2020-07-08 04:36] LABS: Hematocrit 24.1 % (41.0-53.0); Lymphocytes % (auto) 6.1 % (10.0-50.0); Mean Corpuscular Hemoglobin 32.1 pg (28.0-32.0); Monocytes # (auto) 1.2 10 ^3/uL (0-1.3); Monocytes % (auto) 11.2 % (0.0-12.0); Neutrophils % (auto) 76.1 % (37.0-80.0); Red Blood Cells 2.48 10^6/uL (4.5-5.90)
[2020-07-08 05:26] LABS: Calcium 9.2 mg/dL (8.5-10.1); Magnesium 2.2 mg/dL (1.6-2.6); Phosphorus 7.3 mg/dL (2.5-4.90); Potassium 4.2 mmol/L (3.5-5.1)
[2020-07-08] MEDS: ACCU-CHEK COMFORT CURVE STRIP VI SCH ×4 (05:49→17:34)
[2020-07-08] MEDS: AMIODARONE 450mg/250ml AE 250 ML IV SCH (05:49)
[2020-07-08] MEDS: InsuLIN REG 1unit/0.01ml Soln (100units/ml) SC SCH ×4 (05:50→17:32)
[2020-07-08] MEDS ORDERED: SODIUM CHL 0.9% 1000 ML BAG XX ONE (07:00)
[2020-07-08] MEDS: DOPamine 1600MCG/ML D5W 250 ML IV SCH ×2 (10:15→21:09)
[2020-07-08] MEDS: fentaNYL Drip 2500mCg/250mlNS 250 ML IV SCH (10:18)
[2020-07-08] MEDS: PANTOPRAZOLE 40 MG/10 ML VIAL INJ IV SCH (10:25)
[2020-07-08] MEDS: ENOXAPARIN SOD 100 MG/1 ML SYRINGE SC SCH (10:25)
[2020-07-08] MEDS: AMIODARONE HCL 200 MG TAB PO SCH ×2 (10:25→21:43)
[2020-07-08] MEDS: predniSONE 5 MG TAB PO SCH (10:25)
[2020-07-08] MEDS: ASPirin 81 mg TAB PO SCH (10:25)
[2020-07-08] MEDS: MORPHINE SULF INJ 2 MG/ML SYRINGE 1ML IV PRN (14:16)
[2020-07-08] MEDS: LORazepam 2MG/ML-1ML VIAL IV PRN ×2 (14:17→23:14)
[2020-07-08] MEDS: ACETAMINOPHEN 325 MG TAB PO PRN (16:56)
[2020-07-08] MEDS ORDERED: EPOETIN ALFA 10,000 UNIT/1 ML VIAL SC ONE (21:00)
[2020-07-09] VITALS (49 sets, daily range): BP systolic 108–167; BP diastolic 29–86
[2020-07-09] MEDS: InsuLIN REG 1unit/0.01ml Soln (100units/ml) SC SCH ×4 (00:03→17:10)
[2020-07-09] MEDS: ACCU-CHEK COMFORT CURVE STRIP VI SCH ×4 (00:04→17:10)
[2020-07-09] MEDS: ACETAMINOPHEN 325 MG TAB PO PRN (00:05)
[2020-07-09] MEDS: PROPOFOL 100 ML IV SCH ×2 (00:15→21:15)
[2020-07-09] MEDS: MIDAZOLAM DRIP 50 mg/50mL 50 ML IV SCH (02:45)
[2020-07-09] MEDS: NOREPINEPHRINE 8 MG/250ML KIT 250 ML IV SCH ×2 (03:15→14:00)
[2020-07-09 05:00] LABS: Calcium 9.2 mg/dL (8.5-10.1); Potassium 4.1 mmol/L (3.5-5.1)
[2020-07-09 05:02] LABS: BUN/Creatinine Ratio 7.8
[2020-07-09 07:49] LABS: Magnesium 2.3 mg/dL (1.6-2.6); Phosphorus 7.5 mg/dL (2.5-4.90)
[2020-07-09] MEDS: DOPamine 1600MCG/ML D5W 250 ML IV SCH ×2 (08:03→18:57)
[2020-07-09] MEDS: fentaNYL Drip 2500mCg/250mlNS 250 ML IV SCH (09:00)
[2020-07-09] MEDS: predniSONE 5 MG TAB PO SCH (09:33)
[2020-07-09] MEDS: ENOXAPARIN SOD 100 MG/1 ML SYRINGE SC SCH (09:33)
[2020-07-09] MEDS: ASPirin 81 mg TAB PO SCH (09:33)
[2020-07-09] MEDS: AMIODARONE HCL 200 MG TAB PO SCH ×2 (09:33→21:24)
[2020-07-09] MEDS: PANTOPRAZOLE 40 MG/10 ML VIAL INJ IV SCH (09:33)
[2020-07-09 09:53] LABS: Eosinophils # (auto) 0.7 10 ^3/uL (0-0.8); Hematocrit 22.2 % (41.0-53.0); Hemoglobin 7.2 g/dL (13.5-17.5); Lymphocytes # (auto) 0.7 10 ^3/uL (0.4-5.4); Neutrophils # (auto) 6.6 10 ^3/uL (1.6-8.6)
[2020-07-09 09:56] LABS: Basophils # (auto) 0.1 10 ^3/uL (0-0.2); Basophils % (auto) 0.6 % (0.0-2.0); Eosinophils % (auto) 7.9 % (0.0-7.0); Mean Corpuscular Hemoglobin 31.3 pg (28.0-32.0); Mean Corpuscular Hgb Conc. 32.2 g/dL (32.0-36.0); Mean Corpuscular Volume 97.2 fL (80.0-100.0); Neutrophils % (auto) 72.5 % (37.0-80.0); Platelet Count (auto) 223 10^3/uL (140-450); Red Blood Cells 2.28 10^6/uL (4.5-5.90); Red Cell Distribution Width 17.2 % (11.8-14.3); White Blood Cell 9.1 10^3/uL (4.4-10.8)
[2020-07-09] MEDS: MORPHINE SULF INJ 2 MG/ML SYRINGE 1ML IV PRN (20:36)
[2020-07-10] VITALS (27 sets, daily range): BP systolic 113–155; BP diastolic 37–116
[2020-07-10] MEDS: ACCU-CHEK COMFORT CURVE STRIP VI SCH ×5 (00:04→23:27)
[2020-07-10] MEDS: ACETAMINOPHEN 325 MG TAB PO PRN ×2 (00:05→23:50)
[2020-07-10] MEDS: LORazepam 2MG/ML-1ML VIAL IV PRN ×2 (00:35→21:10)
[2020-07-10] MEDS: MIDAZOLAM DRIP 50 mg/50mL 50 ML IV SCH (02:45)
[2020-07-10 04:49] LABS: Basophils # (auto) 0.1 10 ^3/uL (0-0.2); Eosinophils # (auto) 0.7 10 ^3/uL (0-0.8); Hemoglobin 7.9 g/dL (13.5-17.5); Lymphocytes # (auto) 0.6 10 ^3/uL (0.4-5.4); Nucleated Red Blood Cells % 0.1 %; White Blood Cell 8.6 10^3/uL (4.4-10.8)
[2020-07-10 04:51] LABS: Basophils % (auto) 0.9 % (0.0-2.0); Hematocrit 24.5 % (41.0-53.0); Lymphocytes % (auto) 7.1 % (10.0-50.0); Mean Corpuscular Hemoglobin 31.5 pg (28.0-32.0); Mean Corpuscular Hgb Conc. 32.2 g/dL (32.0-36.0); Mean Corpuscular Volume 98.1 fL (80.0-100.0); Monocytes # (auto) 1.1 10 ^3/uL (0-1.3); Monocytes % (auto) 13.1 % (0.0-12.0); Neutrophils # (auto) 6.1 10 ^3/uL (1.6-8.6); Neutrophils % (auto) 70.9 % (37.0-80.0); Platelet Count (auto) 200 10^3/uL (140-450); Red Cell Distribution Width 17.4 % (11.8-14.3)
[2020-07-10 05:07] LABS: Calcium 9.6 mg/dL (8.5-10.1); Potassium 4.4 mmol/L (3.5-5.1)
[2020-07-10 05:09] LABS: BUN/Creatinine Ratio 7.6
[2020-07-10] MEDS: InsuLIN REG 1unit/0.01ml Soln (100units/ml) SC SCH ×5 (05:43→23:42)
[2020-07-10] MEDS: DOPamine 1600MCG/ML D5W 250 ML IV SCH (05:51)
[2020-07-10] MEDS ORDERED: SODIUM CHL 0.9% 1000 ML BAG XX ONE (07:00)
[2020-07-10] MEDS ORDERED: CATHFLO ACTIVASE (ALTEPLASE) 2 MG VIAL IV ONE (07:15)
[2020-07-10] MEDS: ASPirin 81 mg TAB PO SCH (09:54)
[2020-07-10] MEDS: PANTOPRAZOLE 40 MG/10 ML VIAL INJ IV SCH (09:54)
[2020-07-10] MEDS: AMIODARONE HCL 200 MG TAB PO SCH ×2 (09:55→21:10)
[2020-07-10] MEDS: ENOXAPARIN SOD 100 MG/1 ML SYRINGE SC SCH (09:55)
[2020-07-10] MEDS: predniSONE 5 MG TAB PO SCH (09:55)
[2020-07-10] MEDS: fentaNYL Drip 2500mCg/250mlNS 250 ML IV SCH (11:45)
[2020-07-10] MEDS: PROPOFOL 100 ML IV SCH (18:15)
[2020-07-10] MEDS ORDERED: EPOETIN ALFA 10,000 UNIT/1 ML VIAL SC ONE (21:00)
[2020-07-11] VITALS (30 sets, daily range): BP systolic 109–167; BP diastolic 23–123
[2020-07-11] MEDS: MIDAZOLAM DRIP 50 mg/50mL 50 ML IV SCH (02:45)
[2020-07-11] MEDS: NOREPINEPHRINE 8 MG/250ML KIT 250 ML IV SCH (03:15)
[2020-07-11 03:42] LABS: Basophils # (auto) 0.1 10 ^3/uL (0-0.2); Basophils % (auto) 0.7 % (0.0-2.0); Eosinophils # (auto) 0.6 10 ^3/uL (0-0.8); Eosinophils % (auto) 6.4 % (0.0-7.0); Hematocrit 26.1 % (41.0-53.0); Hemoglobin 8.5 g/dL (13.5-17.5); Lymphocytes # (auto) 0.7 10 ^3/uL (0.4-5.4); Mean Corpuscular Hemoglobin 31.6 pg (28.0-32.0); Mean Corpuscular Hgb Conc. 32.6 g/dL (32.0-36.0); Mean Corpuscular Volume 96.9 fL (80.0-100.0); Monocytes # (auto) 1.1 10 ^3/uL (0-1.3); Monocytes % (auto) 10.7 % (0.0-12.0); Neutrophils # (auto) 7.5 10 ^3/uL (1.6-8.6); Neutrophils % (auto) 75.2 % (37.0-80.0); Platelet Count (auto) 242 10^3/uL (140-450); Red Cell Distribution Width 17.4 % (11.8-14.3); White Blood Cell 9.9 10^3/uL (4.4-10.8)
[2020-07-11 04:02] LABS: Albumin 2.8 g/dL (3.4-5.0); BUN/Creatinine Ratio 7.2; Calcium 9.7 mg/dL (8.5-10.1); Magnesium 2.4 mg/dL (1.6-2.6); Potassium 4.6 mmol/L (3.5-5.1)
[2020-07-11 04:04] LABS: Bilirubin, Total 0.7 mg/dL (0.2-1.0); Phosphorus 7.8 mg/dL (2.5-4.90); Total Protein 7.1 g/dL (6.4-8.2)
[2020-07-11] MEDS: InsuLIN REG 1unit/0.01ml Soln (100units/ml) SC SCH ×3 (05:56→17:46)
[2020-07-11] MEDS: ACCU-CHEK COMFORT CURVE STRIP VI SCH ×3 (05:56→17:33)
[2020-07-11] MEDS: ACETAMINOPHEN 325 MG TAB PO PRN (05:58)
[2020-07-11] MEDS ORDERED: SODIUM CHL 0.9% 1000 ML BAG XX ONE (07:00)
[2020-07-11] MEDS: DOPamine 1600MCG/ML D5W 250 ML IV SCH (07:42)
[2020-07-11] MEDS: predniSONE 5 MG TAB PO SCH (08:41)
[2020-07-11] MEDS: AMIODARONE HCL 200 MG TAB PO SCH ×2 (08:41→22:25)
[2020-07-11] MEDS: PANTOPRAZOLE 40 MG/10 ML VIAL INJ IV SCH (08:41)
[2020-07-11] MEDS: ASPirin 81 mg TAB PO SCH (08:41)
[2020-07-11] MEDS: fentaNYL Drip 2500mCg/250mlNS 250 ML IV SCH (08:42)
[2020-07-11] MEDS: ENOXAPARIN SOD 100 MG/1 ML SYRINGE SC SCH (08:42)
[2020-07-11] MEDS: PROPOFOL 100 ML IV SCH (09:17)
[2020-07-11] MEDS: LORazepam 2MG/ML-1ML VIAL IV PRN ×2 (11:44→22:26)
[2020-07-11] MEDS: ALPRAZolam 0.5 MG TAB PO PRN (14:00)
[2020-07-11] MEDS: MORPHINE SULF INJ 2 MG/ML SYRINGE 1ML IV PRN (15:26)
[2020-07-11] MEDS ORDERED: EPOETIN ALFA 10,000 UNIT/1 ML VIAL SC ONE (21:00)
[2020-07-12] VITALS (65 sets, daily range): BP systolic 72–151; BP diastolic 12–94
[2020-07-12] MEDS: ACCU-CHEK COMFORT CURVE STRIP VI SCH ×5 (00:40→23:53)
[2020-07-12] MEDS ORDERED: CARVEDILOL 12.5 MG TAB PO ONE (01:00)
[2020-07-12] MEDS: DOPamine 1600MCG/ML D5W 250 ML IV SCH ×3 (01:27→23:15)
[2020-07-12] MEDS: MIDAZOLAM DRIP 50 mg/50mL 50 ML IV SCH (02:45)
[2020-07-12] MEDS: NOREPINEPHRINE 8 MG/250ML KIT 250 ML IV SCH ×2 (03:15→10:18)
[2020-07-12] MEDS: InsuLIN REG 1unit/0.01ml Soln (100units/ml) SC SCH ×5 (06:00→23:54)
[2020-07-12] MEDS: MORPHINE SULF INJ 2 MG/ML SYRINGE 1ML IV PRN (08:00)
[2020-07-12] MEDS: ACETAMINOPHEN 325 MG TAB PO PRN (08:18)
[2020-07-12] MEDS ORDERED: CARVEDILOL 12.5 MG TAB PO SCH (10:00)
[2020-07-12] MEDS: predniSONE 5 MG TAB PO SCH (10:00)
[2020-07-12] MEDS: AMIODARONE HCL 200 MG TAB PO SCH ×2 (10:00→21:04)
[2020-07-12] MEDS: ASPirin 81 mg TAB PO SCH (10:00)
[2020-07-12] MEDS: ENOXAPARIN SOD 100 MG/1 ML SYRINGE SC SCH (10:00)
[2020-07-12] MEDS ORDERED: AMIODARONE 450mg/250ml AE 250 ML IV SCH (10:00)
[2020-07-12] MEDS: PANTOPRAZOLE 40 MG/10 ML VIAL INJ IV SCH (10:00)
[2020-07-12] MEDS: fentaNYL Drip 2500mCg/250mlNS 250 ML IV SCH (11:45)
[2020-07-12] MEDS: PROPOFOL 100 ML IV SCH (12:15)
[2020-07-12] MEDS: ALPRAZolam 0.5 MG TAB PO PRN (20:15)
[2020-07-12] MEDS ORDERED: EPOETIN ALFA 10,000 UNIT/1 ML VIAL SC ONE (21:00)
[2020-07-12] MEDS: AMIODARONE 450mg/250ml AE 250 ML IV SCH (21:04)
[2020-07-12] MEDS ORDERED: EPOETIN ALFA 10,000 UNIT/1 ML VIAL ONE (21:35)
[2020-07-12] MEDS ORDERED: ATORVASTATIN 20 MG TAB PO SCH (22:00)
[2020-07-13] VITALS (70 sets, daily range): BP systolic 92–136; BP diastolic 51–89
[2020-07-13] MEDS: MORPHINE SULF INJ 2 MG/ML SYRINGE 1ML IV PRN
[2020-07-13] MEDS: MIDAZOLAM DRIP 50 mg/50mL 50 ML IV SCH (02:45)
[2020-07-13 04:59] LABS: Cholesterol 91 mg/dL (< 200)
[2020-07-13 05:02] LABS: HDL Cholesterol 18 mg/dL (40-59); LDL Cholesterol 33 mg/dL (< 100); Triglycerides 226 mg/dL (< 150)
[2020-07-13] MEDS: NOREPINEPHRINE 8 MG/250ML KIT 250 ML IV SCH ×2 (06:41→11:17)
[2020-07-13] MEDS: ACCU-CHEK COMFORT CURVE STRIP VI SCH ×3 (06:42→18:24)
[2020-07-13] MEDS: InsuLIN REG 1unit/0.01ml Soln (100units/ml) SC SCH ×3 (06:43→18:24)
[2020-07-13] MEDS ORDERED: SODIUM CHL 0.9% 1000 ML BAG XX ONE (07:00)
[2020-07-13 08:29] LABS: BUN/Creatinine Ratio 7.4; Calcium 9.4 mg/dL (8.5-10.1); Potassium 5.1 mmol/L (3.5-5.1)
[2020-07-13 08:47] LABS: Basophils # (auto) 0.1 10 ^3/uL (0-0.2); Basophils % (auto) 0.7 % (0.0-2.0); Eosinophils # (auto) 0.9 10 ^3/uL (0-0.8); Eosinophils % (auto) 7.7 % (0.0-7.0); Hematocrit 25.6 % (41.0-53.0); Hemoglobin 7.4 g/dL (13.5-17.5); Lymphocytes % (auto) 8.4 % (10.0-50.0); Mean Corpuscular Hemoglobin 29.7 pg (28.0-32.0); Mean Corpuscular Hgb Conc. 28.8 g/dL (32.0-36.0); Mean Corpuscular Volume 103.1 fL (80.0-100.0); Monocytes # (auto) 1.2 10 ^3/uL (0-1.3); Neutrophils # (auto) 8.4 10 ^3/uL (1.6-8.6); Neutrophils % (auto) 73.2 % (37.0-80.0); Nucleated Red Blood Cells % 0.1 %; Platelet Count (auto) 201 10^3/uL (140-450); Red Blood Cells 2.48 10^6/uL (4.5-5.90); Red Cell Distribution Width 17.7 % (11.8-14.3); White Blood Cell 11.5 10^3/uL (4.4-10.8)
[2020-07-13] MEDS: ALPRAZolam 0.5 MG TAB PO PRN (09:00)
[2020-07-13] MEDS: PROPOFOL 100 ML IV SCH (09:15)
[2020-07-13] MEDS: predniSONE 5 MG TAB PO SCH (10:00)
[2020-07-13] MEDS: PANTOPRAZOLE 40 MG/10 ML VIAL INJ IV SCH (10:00)
[2020-07-13] MEDS: ASPirin 81 mg TAB PO SCH (10:00)
[2020-07-13] MEDS: AMIODARONE HCL 200 MG TAB PO SCH ×2 (10:00→21:31)
[2020-07-13] MEDS: ENOXAPARIN SOD 100 MG/1 ML SYRINGE SC SCH (10:00)
[2020-07-13] MEDS: DOPamine 1600MCG/ML D5W 250 ML IV SCH ×2 (10:09→21:03)
[2020-07-13] MEDS: AMIODARONE 450mg/250ml AE 250 ML IV SCH (11:30)
[2020-07-13] MEDS: fentaNYL Drip 2500mCg/250mlNS 250 ML IV SCH (11:45)
[2020-07-13] MEDS ORDERED: SODIUM ZIRCONIUM CYCL 10 GM PAK PO ONE (14:45)
[2020-07-13] MEDS ORDERED: EPOETIN ALFA 10,000 UNIT/1 ML VIAL SC ONE (21:00)
[2020-07-13] MEDS: ATORVASTATIN 20 MG TAB PO SCH (21:31)
[2020-07-14] VITALS (34 sets, daily range): BP systolic 83–124; BP diastolic 22–82
[2020-07-14] MEDS: ACCU-CHEK COMFORT CURVE STRIP VI SCH ×4 (00:21→18:08)
[2020-07-14] MEDS: MORPHINE SULF INJ 2 MG/ML SYRINGE 1ML IV PRN (00:26)
[2020-07-14] MEDS: AMIODARONE 450mg/250ml AE 250 ML IV SCH ×2 (02:30→17:30)
[2020-07-14] MEDS: MIDAZOLAM DRIP 50 mg/50mL 50 ML IV SCH (02:45)
[2020-07-14] MEDS: NOREPINEPHRINE 8 MG/250ML KIT 250 ML IV SCH ×2 (03:15→09:45)
[2020-07-14] MEDS: ALPRAZolam 0.5 MG TAB PO PRN (04:15)
[2020-07-14 05:05] LABS: Monocytes # (auto) 1.2 10 ^3/uL (0-1.3); Nucleated Red Blood Cells % 0.1 %
[2020-07-14 05:08] LABS: Basophils # (auto) 0.2 10 ^3/uL (0-0.2); Basophils % (auto) 1.1 % (0.0-2.0); Hematocrit 26.8 % (41.0-53.0); Hemoglobin 8.3 g/dL (13.5-17.5); Lymphocytes % (auto) 6.1 % (10.0-50.0); Mean Corpuscular Hemoglobin 30.9 pg (28.0-32.0); Mean Corpuscular Hgb Conc. 30.9 g/dL (32.0-36.0); Mean Corpuscular Volume 100.1 fL (80.0-100.0); Monocytes % (auto) 7.1 % (0.0-12.0); Neutrophils # (auto) 13.5 10 ^3/uL (1.6-8.6); Neutrophils % (auto) 79.7 % (37.0-80.0); Platelet Count (auto) 257 10^3/uL (140-450); Red Blood Cells 2.68 10^6/uL (4.5-5.90); Red Cell Distribution Width 17.9 % (11.8-14.3); White Blood Cell 16.9 10^3/uL (4.4-10.8)
[2020-07-14 05:26] LABS: BUN/Creatinine Ratio 8.4; Calcium 9.5 mg/dL (8.5-10.1); Potassium 5.3 mmol/L (3.5-5.1)
[2020-07-14] MEDS: PROPOFOL 100 ML IV SCH (07:00)
[2020-07-14] MEDS ORDERED: SODIUM CHL 0.9% 1000 ML BAG XX ONE (07:00)
[2020-07-14] MEDS: InsuLIN REG 1unit/0.01ml Soln (100units/ml) SC SCH ×4 (07:00→18:08)
[2020-07-14] MEDS: DOPamine 1600MCG/ML D5W 250 ML IV SCH (07:57)
[2020-07-14] MEDS: predniSONE 5 MG TAB PO SCH (10:16)
[2020-07-14] MEDS: PANTOPRAZOLE 40 MG/10 ML VIAL INJ IV SCH (10:16)
[2020-07-14] MEDS: ENOXAPARIN SOD 100 MG/1 ML SYRINGE SC SCH (10:16)
[2020-07-14] MEDS: AMIODARONE HCL 200 MG TAB PO SCH ×2 (10:16→22:00)
[2020-07-14] MEDS: fentaNYL Drip 2500mCg/250mlNS 250 ML IV SCH (11:45)
[2020-07-14] MEDS ORDERED: EPOETIN ALFA 10,000 UNIT/1 ML VIAL SC ONE (21:00)
[2020-07-14] MEDS: ATORVASTATIN 20 MG TAB PO SCH (22:00)
[2020-07-15] VITALS (17 sets, daily range): BP systolic 92–165; BP diastolic 45–77
[2020-07-15] MEDS: ALPRAZolam 0.5 MG TAB PO PRN ×2 (02:03→17:57)
[2020-07-15 05:21] LABS: Basophils # (auto) 0.1 10 ^3/uL (0-0.2); Hemoglobin 7.7 g/dL (13.5-17.5); Neutrophils # (auto) 6.7 10 ^3/uL (1.6-8.6); White Blood Cell 9.4 10^3/uL (4.4-10.8)
[2020-07-15 05:23] LABS: Basophils % (auto) 1.4 % (0.0-2.0); Eosinophils # (auto) 0.7 10 ^3/uL (0-0.8); Eosinophils % (auto) 7.1 % (0.0-7.0); Hematocrit 24.2 % (41.0-53.0); Lymphocytes % (auto) 10.8 % (10.0-50.0); Mean Corpuscular Hemoglobin 31.4 pg (28.0-32.0); Mean Corpuscular Hgb Conc. 31.9 g/dL (32.0-36.0); Mean Corpuscular Volume 98.5 fL (80.0-100.0); Monocytes # (auto) 0.9 10 ^3/uL (0-1.3); Monocytes % (auto) 9.1 % (0.0-12.0); Neutrophils % (auto) 71.6 % (37.0-80.0); Platelet Count (auto) 212 10^3/uL (140-450); Red Blood Cells 2.46 10^6/uL (4.5-5.90); Red Cell Distribution Width 17.4 % (11.8-14.3)
[2020-07-15 05:43] LABS: Potassium 4.9 mmol/L (3.5-5.1)
[2020-07-15 05:51] LABS: Albumin 2.5 g/dL (3.4-5.0); BUN/Creatinine Ratio 8.3; Bilirubin, Total 0.6 mg/dL (0.2-1.0); Calcium 9.1 mg/dL (8.5-10.1); Total Protein 6.7 g/dL (6.4-8.2)
[2020-07-15] MEDS: InsuLIN REG 1unit/0.01ml Soln (100units/ml) SC SCH ×5 (06:00→23:19)
[2020-07-15] MEDS: ACCU-CHEK COMFORT CURVE STRIP VI SCH ×5 (06:17→23:06)
[2020-07-15] MEDS: DOPamine 1600MCG/ML D5W 250 ML IV SCH ×2 (07:47→07:51)
[2020-07-15] MEDS: NOREPINEPHRINE 8 MG/250ML KIT 250 ML IV SCH ×2 (07:48→07:49)
[2020-07-15] MEDS: MIDAZOLAM DRIP 50 mg/50mL 50 ML IV SCH (07:48)
[2020-07-15] MEDS: PROPOFOL 100 ML IV SCH (07:48)
[2020-07-15] MEDS: AMIODARONE 450mg/250ml AE 250 ML IV SCH (07:49)
[2020-07-15] MEDS: PANTOPRAZOLE 40 MG/10 ML VIAL INJ IV SCH (09:41)
[2020-07-15] MEDS: ENOXAPARIN SOD 100 MG/1 ML SYRINGE SC SCH (09:41)
[2020-07-15] MEDS: AMIODARONE HCL 200 MG TAB PO SCH ×2 (09:41→23:06)
[2020-07-15] MEDS: predniSONE 5 MG TAB PO SCH (09:41)
[2020-07-15] MEDS: fentaNYL Drip 2500mCg/250mlNS 250 ML IV SCH (10:53)
[2020-07-15] MEDS ORDERED: ALBUTEROL SULF 2.5 MG/0.5ML(0.5%) NEB SOLN NEB PRN (11:15)
[2020-07-15] MEDS: ATORVASTATIN 20 MG TAB PO SCH (23:06)
[2020-07-16] MEDS: HYDROcodone-ACET 5/325MG TAB PO PRN ×3 (01:52→16:00)
[2020-07-16 05:00] VITALS: BP 109/61
[2020-07-16 05:50] LABS: Mean Corpuscular Volume 98.4 fL (80.0-100.0)
[2020-07-16 05:53] LABS: Basophils # (auto) 0.2 10 ^3/uL (0-0.2); Basophils % (auto) 1.6 % (0.0-2.0); Eosinophils % (auto) 10.6 % (0.0-7.0); Hematocrit 23.5 % (41.0-53.0); Hemoglobin 7.4 g/dL (13.5-17.5); Lymphocytes % (auto) 9.8 % (10.0-50.0); Mean Corpuscular Hemoglobin 31.1 pg (28.0-32.0); Mean Corpuscular Hgb Conc. 31.6 g/dL (32.0-36.0); Monocytes # (auto) 0.9 10 ^3/uL (0-1.3); Monocytes % (auto) 9.8 % (0.0-12.0); Neutrophils # (auto) 6.6 10 ^3/uL (1.6-8.6); Neutrophils % (auto) 68.2 % (37.0-80.0); Nucleated Red Blood Cells % 0.1 %; Platelet Count (auto) 254 10^3/uL (140-450); Red Blood Cells 2.39 10^6/uL (4.5-5.90); Red Cell Distribution Width 17.3 % (11.8-14.3); White Blood Cell 9.7 10^3/uL (4.4-10.8)
[2020-07-16] MEDS: InsuLIN REG 1unit/0.01ml Soln (100units/ml) SC SCH ×3 (06:00→17:25)
[2020-07-16] MEDS: ACCU-CHEK COMFORT CURVE STRIP VI SCH ×3 (06:05→17:25)
[2020-07-16] MEDS ORDERED: SODIUM CHL 0.9% 1000 ML BAG XX ONE (07:00)
[2020-07-16 09:00] VITALS: BP 130/72
[2020-07-16] MEDS: AMIODARONE HCL 200 MG TAB PO SCH ×2 (09:24→21:58)
[2020-07-16] MEDS: ENOXAPARIN SOD 100 MG/1 ML SYRINGE SC SCH (09:25)
[2020-07-16] MEDS: predniSONE 5 MG TAB PO SCH (09:25)
[2020-07-16] MEDS: PANTOPRAZOLE 40 MG/10 ML VIAL INJ IV SCH (09:25)
[2020-07-16 13:00] VITALS: BP 136/87
[2020-07-16 17:33] VITALS: BP 108/67
[2020-07-16] MEDS ORDERED: EPOETIN ALFA-EPBX 10,000 UNIT/1ML VIAL SC ONE (21:00)
[2020-07-16] MEDS: ATORVASTATIN 20 MG TAB PO SCH (21:58)
[2020-07-16 21:59] VITALS: BP 120/87
[2020-07-16 23:48] VITALS: BP 120/87
[2020-07-17] VITALS (29 sets, daily range): BP systolic 80–258; BP diastolic 28–188
[2020-07-17] MEDS: ACCU-CHEK COMFORT CURVE STRIP VI SCH ×4 (00:07→18:35)
[2020-07-17] MEDS: InsuLIN REG 1unit/0.01ml Soln (100units/ml) SC SCH ×4 (06:00→18:35)
[2020-07-17 07:31] LABS: Basophils # (auto) 0.2 10 ^3/uL (0-0.2); Eosinophils # (auto) 0.6 10 ^3/uL (0-0.8); Hemoglobin 7.6 g/dL (13.5-17.5)
[2020-07-17 07:34] LABS: Basophils % (auto) 1.1 % (0.0-2.0); Eosinophils % (auto) 3.4 % (0.0-7.0); Hematocrit 24.2 % (41.0-53.0); Lymphocytes # (auto) 1.1 10 ^3/uL (0.4-5.4); Lymphocytes % (auto) 6.3 % (10.0-50.0); Mean Corpuscular Hemoglobin 30.9 pg (28.0-32.0); Mean Corpuscular Hgb Conc. 31.4 g/dL (32.0-36.0); Mean Corpuscular Volume 98.3 fL (80.0-100.0); Monocytes # (auto) 1.6 10 ^3/uL (0-1.3); Neutrophils # (auto) 14.2 10 ^3/uL (1.6-8.6); Neutrophils % (auto) 80.2 % (37.0-80.0); Platelet Count (auto) 280 10^3/uL (140-450); Red Blood Cells 2.47 10^6/uL (4.5-5.90); Red Cell Distribution Width 17.6 % (11.8-14.3); White Blood Cell 17.7 10^3/uL (4.4-10.8)
[2020-07-17 08:02] LABS: BUN/Creatinine Ratio 8.5; Calcium 9.2 mg/dL (8.5-10.1)
[2020-07-17] MEDS ORDERED: SODIUM ZIRCONIUM CYCL 10 GM PAK PO ONE (09:30)
[2020-07-17] MEDS: ENOXAPARIN SOD 100 MG/1 ML SYRINGE SC SCH (10:00)
[2020-07-17] MEDS: predniSONE 5 MG TAB PO SCH (10:43)
[2020-07-17] MEDS: PANTOPRAZOLE 40 MG/10 ML VIAL INJ IV SCH (10:43)
[2020-07-17] MEDS: AMIODARONE HCL 200 MG TAB PO SCH ×2 (10:43→22:00)
[2020-07-17] MEDS: ACETAMINOPHEN 325 MG TAB PO PRN (10:44)
[2020-07-17] MEDS ORDERED: MEROPENEM 500MG IVPB 50 ML IV ONE (11:30)
[2020-07-17] MEDS ORDERED: VANCOMYCIN PER PHARMACY 0 MG IV SCH (11:30)
[2020-07-17] MEDS ORDERED: VANCOMYCIN 1GM/250ML 250 ML IV ONE (11:45)
[2020-07-17] MEDS ORDERED: LIDOCAINE 2%HCL (LOCAL ANESTH.) INJ 20ML MDV ONE (13:02)
[2020-07-17] MEDS ORDERED: IOPAMIDOL 76 % (ISOVUE-370) 100ML BTL IV ONE ×3 (13:02→15:15)
[2020-07-17] MEDS ORDERED: diphenhdrAMINE HCL 50 MG/1 ML VL ONE (13:18)
[2020-07-17] MEDS ORDERED: MIDAZOLAM HCL 1MG/1ML-2 ML VIAL ONE (13:18)
[2020-07-17] MEDS ORDERED: fentaNYL CITRATE 100 MCG/2 ML VL ONE (13:18)
[2020-07-17] MEDS ORDERED: HEPARIN SODIUM (PORCINE) 5000 UNITS/ML 1ML VIAL ONE ×2 (13:59→15:53)
[2020-07-17] MEDS ORDERED: NOREPINEPHRINE 8 MG/250ML KIT 250 ML IV ONE (16:40)
[2020-07-17] MEDS ORDERED: NOREPINEPHRINE 8 MG/250ML KIT 250 ML IV SCH (16:45)
[2020-07-17] MEDS ORDERED: ALPRAZolam 0.5 MG TAB PO ONE (18:00)
[2020-07-17] MEDS ORDERED: EPOETIN ALFA-EPBX 10,000 UNIT/1ML VIAL IV ONE (21:00)
[2020-07-17 21:59] LABS: Albumin 2.6 g/dL (3.4-5.0); Calcium 9.1 mg/dL (8.5-10.1); Potassium 4.5 mmol/L (3.5-5.1)
[2020-07-17] MEDS: ATORVASTATIN 20 MG TAB PO SCH (22:00)
[2020-07-17 22:03] LABS: BUN/Creatinine Ratio 8.3; Bilirubin, Total 0.6 mg/dL (0.2-1.0); Total Protein 6.7 g/dL (6.4-8.2)
[2020-07-18] VITALS (24 sets, daily range): BP systolic 96–124; BP diastolic 32–76
[2020-07-18] MEDS: InsuLIN REG 1unit/0.01ml Soln (100units/ml) SC SCH ×2 (02:05→06:00)
[2020-07-18] MEDS: HYDROcodone-ACET 5/325MG TAB PO PRN (06:09)
[2020-07-18] MEDS: ACCU-CHEK COMFORT CURVE STRIP VI SCH ×2 (06:09)
[2020-07-18 06:36] LABS: Basophils # (auto) 0.1 10 ^3/uL (0-0.2); Eosinophils # (auto) 0.3 10 ^3/uL (0-0.8); Eosinophils % (auto) 1.6 % (0.0-7.0); Hemoglobin 7.1 g/dL (13.5-17.5)
[2020-07-18 06:39] LABS: Basophils % (auto) 0.8 % (0.0-2.0); Hematocrit 22.4 % (41.0-53.0); Lymphocytes % (auto) 5.9 % (10.0-50.0); Mean Corpuscular Hemoglobin 30.6 pg (28.0-32.0); Mean Corpuscular Hgb Conc. 31.6 g/dL (32.0-36.0); Mean Corpuscular Volume 96.8 fL (80.0-100.0); Monocytes # (auto) 1.5 10 ^3/uL (0-1.3); Monocytes % (auto) 9.1 % (0.0-12.0); Neutrophils # (auto) 13.5 10 ^3/uL (1.6-8.6); Neutrophils % (auto) 82.6 % (37.0-80.0); Platelet Count (auto) 275 10^3/uL (140-450); Red Blood Cells 2.31 10^6/uL (4.5-5.90); White Blood Cell 16.4 10^3/uL (4.4-10.8)
[2020-07-18 07:01] LABS: Albumin 2.5 g/dL (3.4-5.0); Bilirubin, Total 0.8 mg/dL (0.2-1.0); Calcium 8.9 mg/dL (8.5-10.1); Total Protein 6.6 g/dL (6.4-8.2)
[2020-07-18] MEDS ORDERED: SODIUM BICARBONATE 8.4% INJ 50ML SYRINGE ONE (07:42)
[2020-07-18] MEDS ORDERED: EPINEPHrine HCL 1 MG/10 ML SYRG ONE (07:42)
[2020-07-18] MEDS ORDERED: MEROPENEM 500MG IVPB 50 ML IV SCH (10:00)
[2020-07-18] MEDS ORDERED: EPINEPHrine HCL 1 MG/10 ML SYRG IV ONE (13:34)
[2020-07-18] MEDS ORDERED: LIDOCAINE 4MG/ML IV SOLN 500ML BAG IV ONE (13:34)
[2020-07-18] MEDS ORDERED: CALCIUM CHLOR(10%) 100MG/ML 10ML SYRINGE IV ONE (13:34)
[2020-07-18] MEDS ORDERED: DOPamine 1600mCg/ml 400MG/250ml NSorD5 KIT/BAG IV ONE (13:34)
[2020-07-18] MEDS ORDERED: MAGNESIUM SULF 50% 40 MEQ/10 ML VL IV ONE (13:34)
== END 2020-07-18 13:35 | DRG 853 ==
LOC: EDBD 01:52 → ER 01:57 → TELE 01:58 → ICU WEST 06-25 20:52 → TELE-WESTW 07-15 16:44 → DOU IN ICU 07-17 17:35
PROVIDERS: ADMIT Nurse Practitioner; ATTEND Internal Medicine
PROC: 5A1955Z Respiratory Ventilation, Greater than 96 Consecutive Hours (ICD-10-PCS; principal; 2020-06-24)
PROC: 5A12012 Performance of Cardiac Output, Single, Manual (ICD-10-PCS; 2020-06-24)
PROC: 30233N1 Transfusion of Nonautologous Red Blood Cells into Peripheral Vein, Percutaneous Approach (ICD-10-PCS; 2020-06-24)
PROC: 06HM33Z Insertion of Infusion Device into Right Femoral Vein, Percutaneous Approach (ICD-10-PCS; 2020-06-24)
PROC: B51W1ZZ Fluoroscopy of Dialysis Shunt/Fistula using Low Osmolar Contrast (ICD-10-PCS; 2020-06-24)
PROC: 4A143B0 Monitoring of Venous Pressure, Central, Percutaneous Approach (ICD-10-PCS; 2020-06-24)
PROC: 0BH17EZ Insertion of Endotracheal Airway into Trachea, Via Natural or Artificial Opening (ICD-10-PCS; 2020-06-24)
PROC: 5A1D70Z Performance of Urinary Filtration, Intermittent, Less than 6 Hours Per Day (ICD-10-PCS; 2020-06-25)
PROC: 5A1D70Z Performance of Urinary Filtration, Intermittent, Less than 6 Hours Per Day (ICD-10-PCS; 2020-06-26)
PROC: 5A1D70Z Performance of Urinary Filtration, Intermittent, Less than 6 Hours Per Day (ICD-10-PCS; 2020-06-30)
PROC: 05HN33Z Insertion of Infusion Device into Left Internal Jugular Vein, Percutaneous Approach (ICD-10-PCS; 2020-07-02)
PROC: 5A1D70Z Performance of Urinary Filtration, Intermittent, Less than 6 Hours Per Day (ICD-10-PCS; 2020-07-02)
PROC: 5A1D70Z Performance of Urinary Filtration, Intermittent, Less than 6 Hours Per Day (ICD-10-PCS; 2020-07-04)
PROC: 5A09557 Assistance with Respiratory Ventilation, Greater than 96 Consecutive Hours, Continuous Positive Airway Pressure (ICD-10-PCS; 2020-07-05)
PROC: 05HD33Z Insertion of Infusion Device into Right Cephalic Vein, Percutaneous Approach (ICD-10-PCS; 2020-07-05)
PROC: 06HN33Z Insertion of Infusion Device into Left Femoral Vein, Percutaneous Approach (ICD-10-PCS; 2020-07-06)
PROC: 5A1D70Z Performance of Urinary Filtration, Intermittent, Less than 6 Hours Per Day (ICD-10-PCS; 2020-07-06)
PROC: 5A1D70Z Performance of Urinary Filtration, Intermittent, Less than 6 Hours Per Day (ICD-10-PCS; 2020-07-08)
PROC: 5A1D70Z Performance of Urinary Filtration, Intermittent, Less than 6 Hours Per Day (ICD-10-PCS; 2020-07-09)
PROC: 5A09357 Assistance with Respiratory Ventilation, Less than 24 Consecutive Hours, Continuous Positive Airway Pressure (ICD-10-PCS; 2020-07-10)
PROC: 5A09357 Assistance with Respiratory Ventilation, Less than 24 Consecutive Hours, Continuous Positive Airway Pressure (ICD-10-PCS; 2020-07-11)
PROC: 5A09357 Assistance with Respiratory Ventilation, Less than 24 Consecutive Hours, Continuous Positive Airway Pressure (ICD-10-PCS; 2020-07-12)
PROC: 5A1D70Z Performance of Urinary Filtration, Intermittent, Less than 6 Hours Per Day (ICD-10-PCS; 2020-07-12)
PROC: 5A1D70Z Performance of Urinary Filtration, Intermittent, Less than 6 Hours Per Day (ICD-10-PCS; 2020-07-14)
PROC: 5A1D70Z Performance of Urinary Filtration, Intermittent, Less than 6 Hours Per Day (ICD-10-PCS; 2020-07-16)
PROC: 05763DZ Dilation of Left Subclavian Vein with Intraluminal Device, Percutaneous Approach (ICD-10-PCS; 2020-07-17)
PROC: 5A1D70Z Performance of Urinary Filtration, Intermittent, Less than 6 Hours Per Day (ICD-10-PCS; 2020-07-17)
PROC: B54CZZA Ultrasonography of Left Lower Extremity Veins, Guidance (ICD-10-PCS; 2020-07-17)
PROC: 06PY33Z Removal of Infusion Device from Lower Vein, Percutaneous Approach (ICD-10-PCS; 2020-07-17)
PROC: 06H033Z Insertion of Infusion Device into Inferior Vena Cava, Percutaneous Approach (ICD-10-PCS; 2020-07-17)
PROC: 5A12012 Performance of Cardiac Output, Single, Manual (ICD-10-PCS; 2020-07-18)
DX: A41.9 Sepsis, unspecified organism (principal); N18.6 End stage renal disease; J18.9 Pneumonia, unspecified organism; J96.01 Acute respiratory failure with hypoxia; R65.21 Severe sepsis with septic shock; G93.41 Metabolic encephalopathy; T82.858A Stenosis of other vascular prosthetic devices, implants and grafts, initial encounter; S22.43XA Multiple fractures of ribs, bilateral, initial encounter for closed fracture; D62 Acute posthemorrhagic anemia; Z99.11 Dependence on respirator [ventilator] status; J98.11 Atelectasis; G93.1 Anoxic brain damage, not elsewhere classified; I13.2 Hypertensive heart and chronic kidney disease with heart failure and with stage 5 chronic kidney disease, or end stage renal disease; N17.9 Acute kidney failure, unspecified; T86.19 Other complication of kidney transplant; D68.59 Other primary thrombophilia; L03.116 Cellulitis of left lower limb; D68.9 Coagulation defect, unspecified; Z20.822 Contact with and (suspected) exposure to COVID-19; I46.9 Cardiac arrest, cause unspecified; Z99.2 Dependence on renal dialysis; E66.01 Morbid (severe) obesity due to excess calories; D63.1 Anemia in chronic kidney disease; I25.10 Atherosclerotic heart disease of native coronary artery without angina pectoris; R00.1 Bradycardia, unspecified; X58.XXXA Exposure to other specified factors, initial encounter; R13.10 Dysphagia, unspecified; Z53.20 Procedure and treatment not carried out because of patient's decision for unspecified reasons; E11.22 Type 2 diabetes mellitus with diabetic chronic kidney disease; I50.9 Heart failure, unspecified; I48.91 Unspecified atrial fibrillation; Y83.0 Surgical operation with transplant of whole organ as the cause of abnormal reaction of the patient, or of later complication, without mention of misadventure at the time of the procedure; Z68.37 Body mass index [BMI] 37.0-37.9, adult; Y92.89 Other specified places as the place of occurrence of the external cause; Y93.89 Activity, other specified; Y99.8 Other external cause status; Z79.899 Other long term (current) drug therapy; Z82.49 Family history of ischemic heart disease and other diseases of the circulatory system; Z88.0 Allergy status to penicillin; Z91.15 Patient's noncompliance with renal dialysis; Z83.3 Family history of diabetes mellitus
CPT/HCPCS: 36415; 36600; 70450; 70486; 71045; 71250; 72125; 74176; 76942; 80048; 80053; 80061; 80076; 80202; 80307; 81001; 82270; 82550; 82728; 82805; 82962; 83036; 83540; 83550; 83605; 83615; 83690; 83735; 83880; 84100; 84484; 85014; 85018; 85025; 85379; 85610; 85730; 86850; 86900; 86901; 86920; 87040; 87070; 87077; 87081; 87086; 87186; 87205; 87278; 87426; 87493; 90935; 92610; 93005; 93306; 93886; 93926; 93970; 93971; 94002; 94003; 94640; 94660; 97110; 97530; 99152; 99153; 99291; C9113; G0378; J0696; J0885; J1642; J1815; J2001; J2185; J2250; J2405; J2543; J2704; J3480; J3490; J7060